=== PATIENT | male | born 1970 | race Caucasian/White ===

== ENCOUNTER 2019-09-25 12:30 | Outpatient (CLI) | payer BC ==
--- NOTE | 2019-09-25 12:55 | RAD ---
Exam: Chest 2 views: HISTORY: Cough COMPARISON: 06/05/2011 FINDINGS: Alveolar parenchymal change in the right lower lobe evidence for pneumonia. Heart size is normal. The left lung is clear. IMPRESSION: Left lower lobe pneumonia.
== END 2019-09-25 12:31 | disposition home or self-care (01) ==
LOC: BICRAD 12:30
PROVIDERS: ATTEND Family Medicine
DX: R05 Cough (principal); J18.9 Pneumonia, unspecified organism
CPT/HCPCS: 71046

== ENCOUNTER 2019-10-16 09:06 | Outpatient (CLI) | payer BC ==
--- NOTE | 2019-10-16 10:46 | CT ---
EXAM: CT Abdomen Pelvis W WO con PROVIDED CLINICAL HISTORY: Follow-up left renal cystic lesion. Prior studies in 2017. COMPARISON: 03/10/2017 FINDINGS: Small right pleural effusion is present. There is a parenchymal density seen in the right lower lobe with adjacent interstitial parenchymal opacity. Findings are favored to represent pneumonia, but follow-up evaluation is recommended to ensure resolution and exclude an underlying neoplastic process . The left lung base is clear aside from minimal atelectasis in the lingula. Again noted is the lobulated complex cystic lesion midportion left kidney with associated calcificati ons. Linear densities within this lesion are suggestive of septations with a few of the septations demonstrating thin calcifications. This lesion has similar appearance to the prior study in 2017 alth ough is slightly larger in size measuring 6.5 cm x 4.1 cm in greatest axial dimension with prior measurement of 6.2 cm x 3.9 cm. No abnormal enhancement is seen within this cystic lesion, and the de gree of growth since the prior study is less than 10%. Subcentimeter too small to characterize hypodense lesions are seen in each kidney. There is a slightl y larger hypodense lesion seen in the superior pole left kidney most suggestive of a parapelvic renal cyst. No renal or ureteral calculi are seen bilaterally, and there is no hydronephrosis present . No definite filling defect is seen in the visualized renal collecting systems or ureters. The urinary bladder demonstrates a normal CT appearance. The liver, spleen, pancreas, and bilateral adrenal glands demonstrate a normal CT appearance. Vascular calcifications are seen in the abdominal aorta and iliac arteries. Loops of small bowel are normal in caliber. A few scattered colonic diverticula are seen. Retrocecal appendix is seen without CT evidence of appendicitis. No free fluid, fluid collection, or lymphadenopathy is seen in the abdomen or pelvis. Mild degenerative changes are seen in the spine. IMPRESSION: 1. Parenchymal density right lower lobe with adjacent linear interstitial densities. Findings are fav ored to represent pneumonia especially in the correct clinical scenario. Associated right pleural effusion is present. Follow-up to resolution is recommended to exclude an underlying neoplastic proce ss. 2. 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
[2019-10-16] MEDS ORDERED: Iopamidol 370 76% 100 ML VIAL ONE (14:35)
== END 2019-10-16 09:07 | disposition home or self-care (01) ==
LOC: BICCT 09:06
PROVIDERS: ATTEND Family Medicine
DX: N28.1 Cyst of kidney, acquired (principal); J90 Pleural effusion, not elsewhere classified; N28.9 Disorder of kidney and ureter, unspecified; J98.4 Other disorders of lung
CPT/HCPCS: 74178; Q9967

== ENCOUNTER 2020-04-29 10:42 | Outpatient (CLI) | payer BC ==
--- NOTE | 2020-04-29 12:21 | RAD ---
RIGHT FOOT 3 VIEWS: Date: 04/29/2020 HISTORY: Right foot pain following an injury. FINDINGS: Some mild osteoarthrosis and degenerative changes. No acute fracture or dislocation. IMPRESSION: No significant acute process. POS: RRE
--- NOTE | 2020-04-29 12:22 | RAD ---
RIGHT GREAT TOE 3 VIEWS: Date: 04/29/2020 HISTORY: Pain following an injury. FINDINGS/IMPRESSION: No fracture, dislocation, or other significant acute osseous process. POS: RRE
== END 2020-04-29 10:43 | disposition home or self-care (01) ==
LOC: BICRAD 10:42
PROVIDERS: ATTEND Family Medicine
DX: M79.674 Pain in right toe(s) (principal); M79.671 Pain in right foot

== ENCOUNTER 2021-03-28 07:59 | Day surgery (SDC) | payer BC ==
[2021-03-26 16:56] VITALS: BMI 37.3
[2021-03-28] MEDS ORDERED: PROPOFOL 20 ML ONE (08:51)
[2021-03-28] MEDS ORDERED: Fentanyl 100 MCG/2 ML VIAL ONE (10:45)
[2021-03-28] MEDS ORDERED: Lidocaine 1% PF 5 ML VIAL ONE (10:56)
[2021-03-28] MEDS ORDERED: Metoclopramide HCl 10 MG/2 ML VIAL ONE (10:56)
[2021-03-28] MEDS ORDERED: PROPOFOL 200 MG/20 ML VIAL ONE (10:56)
[2021-03-28] MEDS ORDERED: Bupivacaine PF 0.5% 30 ML VIAL ONE (10:56)
[2021-03-28] MEDS ORDERED: Lidocaine 2% w/Epinephrine 1:200K 20 ML VIAL ONE (10:56)
[2021-03-28] MEDS ORDERED: Ondansetron PF 4 MG/2 ML Vial ONE (10:56)
== END 2021-03-28 14:20 | disposition home or self-care (01) ==
LOC: SDC 07:59
PROVIDERS: ATTEND Orthopaedic Surgery
PROC: 0SBD4ZZ Excision of Left Knee Joint, Percutaneous Endoscopic Approach (ICD-10-PCS; principal; 2021-03-28)
DX: S83.242A Other tear of medial meniscus, current injury, left knee, initial encounter (principal); M23.8X2 Other internal derangements of left knee; I10 Essential (primary) hypertension; Z87.891 Personal history of nicotine dependence; Z79.84 Long term (current) use of oral hypoglycemic drugs; Z79.899 Other long term (current) drug therapy
CPT/HCPCS: J0690; J2405; J2704; J2765; J3010; S0020

== ENCOUNTER 2021-04-11 22:14 | Emergency (ER) | payer BC | END 2021-04-11 23:27 | disposition home or self-care (01) | LOC: ERS 22:14 | DX: U07.1 COVID-19 (principal); E11.9 Type 2 diabetes mellitus without complications; I10 Essential (primary) hypertension; E78.00 Pure hypercholesterolemia, unspecified | CPT/HCPCS: 99283 ==

== ENCOUNTER 2021-04-13 23:36 | Inpatient (IN) | payer BC ==
[~2021-04-13 23:36] MED LIST: Iopamidol-370 76% 500 ML 1 ML ONE
[2021-04-14 00:46] LABS: ALT (SGPT) 76 U/L (8-55); AST (SGOT) 132 U/L (5-34); Albumin 3.7 g/dL (3.5-5.0); Alkaline Phosphatase 97 U/L (40-110); Anion Gap 15 mmol/L (10-20); BUN (Urea Nitrogen) 13 mg/dL (8.9-20.6); Bilirubin, Total 0.4 mg/dL (0.2-1.2); Calc. Creatinine Clearance 0 mL/min (70-130); Calcium 9.1 mg/dL (7.8-10.44); Carbon Dioxide 24 mmol/L (22-29); Chloride 99 mmol/L (98-107); Globulin 3.2 g/dL (2.4-3.5); Glucose 210 mg/dL (70-105); Protein, Total 6.9 g/dL (6.0-8.3); Sodium 135 mmol/L (136-145)
[2021-04-14 00:48] LABS: #Lymphocytes 0.7 thou/uL (1.20-3.40); #Monocytes 0.2 thou/uL (0.11-0.59); #Neutrophils 2.4 thou/uL (1.40-6.50); %Basophils 0.2 % (0.0-1.0); %Eosinophils 0.2 % (0.0-10.0); %Lymphocytes 20.3 % (21.0-51.0); %Monocytes 6.2 % (0.0-10.0); %Neutrophils 73.2 % (42.0-75.0); Hemoglobin 12.6 g/dL (14.0-18.0); Mean Corpuscular HGB CONC 36.3 g/dL (32.0-36.0); Mean Corpuscular Hemoglobin 32.3 pg (27.0-31.0); Mean Platelet Volume 11.5 fL (7.4-10.4); Platelet Count 70 thou/uL (130-400); Platelet Morphology Comment Appears Decreased; RBC Distribution Width 12.6 % (11.5-14.5); White Blood Cell (WBC) Count 3.3 thou/uL (4.8-10.8)
[2021-04-14 01:09] LABS: CKMB 4.7 ng/mL (0-6.6)
[2021-04-14] MEDS ORDERED: Aspirin 325 MG TAB ONE (01:14)
[2021-04-14] MEDS ORDERED: Potassium Chloride 20 MEQ TAB ONE (01:43)
[2021-04-14] MEDS ORDERED: Dexamethasone 10 MG/ML VIAL ONE (01:43)
[2021-04-14] MEDS ORDERED: Ondansetron PF 4 MG/2 ML Vial IVP PRN (03:45)
[2021-04-14] MEDS ORDERED: Dextrose 5% in Water 1,000 ML IV PRN (03:47)
[2021-04-14] MEDS ORDERED: Dextrose 50% Abboject 50 ML SYRINGE SLOW IVP PRN (03:47)
[2021-04-14] MEDS ORDERED: Dexamethasone 10 MG/ML VIAL SLOW IVP SCH (04:00)
[2021-04-14] MEDS ORDERED: Pharmacy to Dose REMDESIVIR IVPB PRN (04:26)
[2021-04-14 05:00] LABS: #Lymphocytes 0.5 thou/uL (1.20-3.40); #Monocytes 0.1 thou/uL (0.11-0.59); #Neutrophils 2.9 thou/uL (1.40-6.50); %Eosinophils 0.1 % (0.0-10.0); %Lymphocytes 15.4 % (21.0-51.0); %Monocytes 2.2 % (0.0-10.0); %Neutrophils 82.4 % (42.0-75.0); Hemoglobin 13.1 g/dL (14.0-18.0); Mean Corpuscular HGB CONC 36.3 g/dL (32.0-36.0); Mean Corpuscular Hemoglobin 32.5 pg (27.0-31.0); Mean Corpuscular Volume 89.3 fL (78.0-98.0); Mean Platelet Volume 11.2 fL (7.4-10.4); Platelet Count 70 thou/uL (130-400); RBC Distribution Width 12.7 % (11.5-14.5); Red Blood Cell (RBC) Count 4.03 mill/uL (4.70-6.10); White Blood Cell (WBC) Count 3.5 thou/uL (4.8-10.8)
[2021-04-14 05:03] LABS: Anion Gap 17 mmol/L (10-20); BUN (Urea Nitrogen) 11 mg/dL (8.9-20.6); Calc. Creatinine Clearance 0 mL/min (70-130); Calcium 8.9 mg/dL (7.8-10.44); Carbon Dioxide 22 mmol/L (22-29); Chloride 100 mmol/L (98-107); Glucose 257 mg/dL (70-105); Potassium 3.7 mmol/L (3.5-5.1); Sodium 135 mmol/L (136-145)
[2021-04-14 05:05] LABS: ALT (SGPT) 92 U/L (8-55); AST (SGOT) 146 U/L (5-34); Albumin 3.8 g/dL (3.5-5.0); Alkaline Phosphatase 103 U/L (40-110); Bilirubin, Direct 0.3 mg/dL (0.1-0.3); Bilirubin, Total 0.4 mg/dL (0.2-1.2); Magnesium 1.7 mg/dL (1.6-2.6); Protein, Total 6.7 g/dL (6.0-8.3)
[2021-04-14] MEDS: HumaLOG 300 UNITS/3 ML VIAL SC PRN ×3 (06:19→20:31)
[2021-04-14] MEDS: Metoprolol Tartrate 25 MG TAB PO SCH ×2 (08:31→17:32)
[2021-04-14] MEDS: Ascorbic Acid 500 mg Chewable Tablet PO SCH (08:32)
[2021-04-14] MEDS: Famotidine 20 MG TAB PO SCH ×2 (08:32→20:14)
[2021-04-14] MEDS: Cholecalciferol 1,000 UNITS (25 MCG) TAB PO SCH (08:32)
[2021-04-14] MEDS: Topiramate 25 MG TAB PO SCH (08:33)
[2021-04-14] MEDS: Furosemide 40 MG TAB PO SCH (08:33)
[2021-04-14] MEDS: Valsartan 80 MG TAB PO SCH (08:33)
[2021-04-14] MEDS: Acetaminophen 325 MG TAB PO PRN ×2 (08:34→20:14)
[2021-04-14] MEDS ORDERED: REMDESIVIR 200 MG in Sodium Chloride 0.9% 250 ML 210 ML IV SCH (09:00)
[2021-04-14] MEDS ORDERED: Furosemide 40 MG TAB PO SCH (09:00)
[2021-04-14 09:44] LABS: Troponin I 0.047 ng/mL (< 0.028)
[2021-04-14] MEDS: hydrALAZINE 20 MG/ML VIAL SLOW IVP PRN (18:25)
[2021-04-15] MEDS ORDERED: guaiFENesin/DM ER PO SCH (03:00)
[2021-04-15] MEDS: hydrALAZINE 20 MG/ML VIAL SLOW IVP PRN (04:41)
[2021-04-15] MEDS ORDERED: HYDROcodone/Acetaminophen 5/325 mg Tablet PO SCH (05:01)
[2021-04-15] MEDS: HumaLOG 300 UNITS/3 ML VIAL SC PRN ×4 (05:55→20:09)
[2021-04-15 05:57] LABS: #Lymphocytes 0.9 thou/uL (1.20-3.40); #Monocytes 0.4 thou/uL (0.11-0.59); #Neutrophils 4.7 thou/uL (1.40-6.50); %Eosinophils 0.1 % (0.0-10.0); %Lymphocytes 14.2 % (21.0-51.0); %Monocytes 6.8 % (0.0-10.0); %Neutrophils 78.9 % (42.0-75.0); Hemoglobin 12.9 g/dL (14.0-18.0); Mean Corpuscular HGB CONC 32.8 g/dL (32.0-36.0); Mean Corpuscular Hemoglobin 29.1 pg (27.0-31.0); Mean Corpuscular Volume 88.8 fL (78.0-98.0); Mean Platelet Volume 11.1 fL (7.4-10.4); Platelet Count 92 thou/uL (130-400); Red Blood Cell (RBC) Count 4.43 mill/uL (4.70-6.10)
[2021-04-15 06:10] LABS: Anion Gap 18 mmol/L (10-20); BUN (Urea Nitrogen) 13 mg/dL (8.9-20.6); Calc. Creatinine Clearance 126 mL/min (70-130); Calcium 8.2 mg/dL (7.8-10.44); Carbon Dioxide 22 mmol/L (22-29); Chloride 100 mmol/L (98-107); Glucose 252 mg/dL (70-105); Potassium 3.7 mmol/L (3.5-5.1); Sodium 136 mmol/L (136-145)
[2021-04-15 06:14] LABS: Albumin 3.6 g/dL (3.5-5.0); Alkaline Phosphatase 99 U/L (40-110); Bilirubin, Direct 0.3 mg/dL (0.1-0.3); Bilirubin, Total 0.5 mg/dL (0.2-1.2); Protein, Total 6.9 g/dL (6.0-8.3)
[2021-04-15 06:15] LABS: ALT (SGPT) 112 U/L (8-55); AST (SGOT) 156 U/L (5-34)
[2021-04-15 06:16] LABS: CRP (Inflammatory) 6.35 mg/dL (= or < 0.5); Magnesium 1.6 mg/dL (1.6-2.6)
[2021-04-15] MEDS: NIFEdipine XL 60 MG TAB PO SCH (09:40)
[2021-04-15] MEDS: Enoxaparin Sodium 100 MG/ML SYRINGE SC SCH ×2 (09:41→20:03)
[2021-04-15] MEDS: Valsartan 80 MG TAB PO SCH (09:41)
[2021-04-15] MEDS: Metoprolol Tartrate 25 MG TAB PO SCH ×2 (09:42→17:01)
[2021-04-15] MEDS: Furosemide 40 MG TAB PO SCH (09:42)
[2021-04-15] MEDS: Topiramate 25 MG TAB PO SCH (09:42)
[2021-04-15] MEDS: Ascorbic Acid 500 mg Chewable Tablet PO SCH (09:42)
[2021-04-15] MEDS: Cholecalciferol 1,000 UNITS (25 MCG) TAB PO SCH (09:42)
[2021-04-15] MEDS: Famotidine 20 MG TAB PO SCH ×2 (09:43→20:01)
[2021-04-15] MEDS: Acetaminophen 325 MG TAB PO PRN (09:43)
[2021-04-15] MEDS: Dexamethasone 10 MG/ML VIAL SLOW IVP SCH (09:44)
[2021-04-15] MEDS: guaiFENesin/DM ER PO SCH ×2 (09:44→20:03)
[2021-04-15] MEDS: REMDESIVIR 100 MG in Sodium Chloride 0.9% 250 ML 230 ML IV SCH (09:45)
[2021-04-16] MEDS: HumaLOG 300 UNITS/3 ML VIAL SC PRN ×4 (06:02→20:17)
[2021-04-16 06:38] LABS: #Lymphocytes 0.8 thou/uL (1.20-3.40); #Monocytes 0.5 thou/uL (0.11-0.59); #Neutrophils 5.1 thou/uL (1.40-6.50); %Basophils 0.6 % (0.0-1.0); %Eosinophils 0.1 % (0.0-10.0); %Lymphocytes 12.7 % (21.0-51.0); %Monocytes 8.3 % (0.0-10.0); %Neutrophils 78.3 % (42.0-75.0); Hemoglobin 13.4 g/dL (14.0-18.0); Mean Corpuscular HGB CONC 32.5 g/dL (32.0-36.0); Mean Corpuscular Hemoglobin 29.3 pg (27.0-31.0); Mean Corpuscular Volume 90.2 fL (78.0-98.0); Mean Platelet Volume 10.6 fL (7.4-10.4); Platelet Count 113 thou/uL (130-400); RBC Distribution Width 13.1 % (11.5-14.5); Red Blood Cell (RBC) Count 4.58 mill/uL (4.70-6.10); White Blood Cell (WBC) Count 6.5 thou/uL (4.8-10.8)
[2021-04-16 07:01] LABS: Anion Gap 15 mmol/L (10-20); BUN (Urea Nitrogen) 18 mg/dL (8.9-20.6); Calc. Creatinine Clearance 142 mL/min (70-130); Calcium 8.4 mg/dL (7.8-10.44); Carbon Dioxide 23 mmol/L (22-29); Chloride 100 mmol/L (98-107); Glucose 299 mg/dL (70-105); Potassium 3.9 mmol/L (3.5-5.1); Sodium 134 mmol/L (136-145)
[2021-04-16 07:02] LABS: CRP (Inflammatory) 7.44 mg/dL (= or < 0.5)
[2021-04-16 07:03] LABS: ALT (SGPT) 122 U/L (8-55); AST (SGOT) 143 U/L (5-34); Albumin 3.5 g/dL (3.5-5.0); Alkaline Phosphatase 99 U/L (40-110); Bilirubin, Direct 0.3 mg/dL (0.1-0.3); Bilirubin, Total 0.5 mg/dL (0.2-1.2); Protein, Total 6.8 g/dL (6.0-8.3)
[2021-04-16] MEDS: REMDESIVIR 100 MG in Sodium Chloride 0.9% 250 ML 230 ML IV SCH (08:14)
[2021-04-16] MEDS: Dexamethasone 10 MG/ML VIAL SLOW IVP SCH (08:16)
[2021-04-16] MEDS: Enoxaparin Sodium 100 MG/ML SYRINGE SC SCH ×2 (08:16→20:13)
[2021-04-16] MEDS: Valsartan 80 MG TAB PO SCH (08:17)
[2021-04-16] MEDS: NIFEdipine XL 60 MG TAB PO SCH (08:17)
[2021-04-16] MEDS: Ascorbic Acid 500 mg Chewable Tablet PO SCH (08:17)
[2021-04-16] MEDS: Topiramate 25 MG TAB PO SCH (08:18)
[2021-04-16] MEDS: Famotidine 20 MG TAB PO SCH ×2 (08:18→20:13)
[2021-04-16] MEDS: Furosemide 40 MG TAB PO SCH (08:18)
[2021-04-16] MEDS: Cholecalciferol 1,000 UNITS (25 MCG) TAB PO SCH (08:18)
[2021-04-16] MEDS: Metoprolol Tartrate 25 MG TAB PO SCH ×2 (08:18→17:18)
[2021-04-16] MEDS: guaiFENesin/DM ER PO SCH ×2 (08:19→20:14)
[2021-04-17 05:41] LABS: #Lymphocytes 1.2 thou/uL (1.20-3.40); #Neutrophils 7.7 thou/uL (1.40-6.50); %Basophils 0.2 % (0.0-1.0); %Eosinophils 0.3 % (0.0-10.0); %Lymphocytes 12.4 % (21.0-51.0); %Monocytes 10.1 % (0.0-10.0); Hemoglobin 13.3 g/dL (14.0-18.0); Mean Corpuscular HGB CONC 33.7 g/dL (32.0-36.0); Mean Corpuscular Hemoglobin 30.3 pg (27.0-31.0); Mean Platelet Volume 10.9 fL (7.4-10.4); Platelet Count 138 thou/uL (130-400); RBC Distribution Width 13.1 % (11.5-14.5)
[2021-04-17 06:07] LABS: Anion Gap 18 mmol/L (10-20); BUN (Urea Nitrogen) 19 mg/dL (8.9-20.6); Calc. Creatinine Clearance 146 mL/min (70-130); Calcium 8.6 mg/dL (7.8-10.44); Carbon Dioxide 22 mmol/L (22-29); Chloride 102 mmol/L (98-107); Glucose 248 mg/dL (70-105); Potassium 3.8 mmol/L (3.5-5.1); Sodium 138 mmol/L (136-145)
[2021-04-17 06:15] LABS: ALT (SGPT) 100 U/L (8-55); AST (SGOT) 82 U/L (5-34); Albumin 3.6 g/dL (3.5-5.0); Alkaline Phosphatase 110 U/L (40-110); Bilirubin, Direct 0.5 mg/dL (0.1-0.3); Bilirubin, Total 0.8 mg/dL (0.2-1.2); Protein, Total 6.7 g/dL (6.0-8.3)
[2021-04-17 06:16] LABS: CRP (Inflammatory) 4.76 mg/dL (= or < 0.5); Magnesium 2.1 mg/dL (1.6-2.6)
[2021-04-17] MEDS: HumaLOG 300 UNITS/3 ML VIAL SC PRN ×4 (06:33→20:24)
[2021-04-17] MEDS: Famotidine 20 MG TAB PO SCH ×2 (09:30→20:23)
[2021-04-17] MEDS: Ascorbic Acid 500 mg Chewable Tablet PO SCH (09:30)
[2021-04-17] MEDS: Topiramate 25 MG TAB PO SCH (09:31)
[2021-04-17] MEDS: Furosemide 40 MG TAB PO SCH (09:31)
[2021-04-17] MEDS: Cholecalciferol 1,000 UNITS (25 MCG) TAB PO SCH (09:31)
[2021-04-17] MEDS: Valsartan 80 MG TAB PO SCH (09:31)
[2021-04-17] MEDS: Metoprolol Tartrate 25 MG TAB PO SCH ×2 (09:31→17:23)
[2021-04-17] MEDS: NIFEdipine XL 60 MG TAB PO SCH (09:32)
[2021-04-17] MEDS: Dexamethasone 10 MG/ML VIAL SLOW IVP SCH (09:33)
[2021-04-17] MEDS: Enoxaparin Sodium 100 MG/ML SYRINGE SC SCH ×2 (09:33→20:19)
[2021-04-17] MEDS: REMDESIVIR 100 MG in Sodium Chloride 0.9% 250 ML 230 ML IV SCH (09:58)
[2021-04-17] MEDS: guaiFENesin/DM ER PO SCH ×2 (09:58→20:23)
[2021-04-17] MEDS ORDERED: BARICITINIB 2 MG TAB PO SCH (11:15)
[2021-04-18] MEDS: HumaLOG 300 UNITS/3 ML VIAL SC PRN ×4 (06:09→21:21)
[2021-04-18 07:56] LABS: Actual Bicarbonate (HCO3a) 21.9 mEq/L (22-28); Base Excess (BEa) 0.9 mEq/L (-2.0 to +3.0); Calcium, Ionized (arterial) 1.14 mmol/L (1.12-1.30); Carboxyhemoglobin (COHb) 0.1 gm% (0.0-3.0); Hemoglobin (Hb) 13.8 g/dL (14.0-18.0); pH, Arterial 7.55 (7.35-7.45)
[2021-04-18 07:57] LABS: CO2 Tension 25.8 mmHg (35.0-45.0); O2 Tension (PaO2), arterial 49.4 mmHg (80.0-100.0); Puncture Site LRA
[2021-04-18] MEDS: guaiFENesin/DM ER PO SCH ×2 (08:55→21:17)
[2021-04-18] MEDS: Enoxaparin Sodium 100 MG/ML SYRINGE SC SCH ×2 (08:57→21:17)
[2021-04-18] MEDS: NIFEdipine XL 60 MG TAB PO SCH (08:57)
[2021-04-18] MEDS: BARICITINIB 2 MG TAB PO SCH (08:58)
[2021-04-18] MEDS: Ascorbic Acid 500 mg Chewable Tablet PO SCH (08:59)
[2021-04-18] MEDS: Metoprolol Tartrate 25 MG TAB PO SCH ×2 (08:59→18:40)
[2021-04-18] MEDS: Cholecalciferol 1,000 UNITS (25 MCG) TAB PO SCH (09:00)
[2021-04-18] MEDS: Furosemide 40 MG TAB PO SCH (09:00)
[2021-04-18] MEDS: Dexamethasone 10 MG/ML VIAL SLOW IVP SCH (09:00)
[2021-04-18] MEDS: Topiramate 25 MG TAB PO SCH (09:01)
[2021-04-18] MEDS: Famotidine 20 MG TAB PO SCH ×2 (09:01→21:17)
[2021-04-18] MEDS: Valsartan 80 MG TAB PO SCH (09:01)
[2021-04-18] MEDS: Acetaminophen 325 MG TAB PO PRN (09:04)
[2021-04-18] MEDS: REMDESIVIR 100 MG in Sodium Chloride 0.9% 250 ML 230 ML IV SCH (11:06)
[2021-04-19] MEDS: Acetaminophen 325 MG TAB PO PRN ×2 (02:44→11:17)
[2021-04-19] MEDS: HumaLOG 300 UNITS/3 ML VIAL SC PRN ×2 (06:19→12:15)
[2021-04-19] MEDS: Metoprolol Tartrate 25 MG TAB PO SCH ×2 (09:52→17:54)
[2021-04-19] MEDS: BARICITINIB 2 MG TAB PO SCH (09:53)
[2021-04-19] MEDS: NIFEdipine XL 60 MG TAB PO SCH (09:53)
[2021-04-19] MEDS: guaiFENesin/DM ER PO SCH ×2 (09:53→22:55)
[2021-04-19] MEDS: Enoxaparin Sodium 100 MG/ML SYRINGE SC SCH ×2 (09:53→22:55)
[2021-04-19] MEDS: Famotidine 20 MG TAB PO SCH ×2 (09:53→22:55)
[2021-04-19] MEDS: Valsartan 80 MG TAB PO SCH (09:53)
[2021-04-19] MEDS: Cholecalciferol 1,000 UNITS (25 MCG) TAB PO SCH (09:54)
[2021-04-19] MEDS: Furosemide 40 MG TAB PO SCH (09:54)
[2021-04-19] MEDS: Topiramate 25 MG TAB PO SCH (09:54)
[2021-04-19] MEDS: Ascorbic Acid 500 mg Chewable Tablet PO SCH (09:54)
[2021-04-19] MEDS: Dexamethasone 10 MG/ML VIAL SLOW IVP SCH (09:55)
[2021-04-19] MEDS: Guaifenesin DM 100-10/5 ML UDCUP PO PRN (11:16)
[2021-04-19] MEDS: hydrALAZINE 20 MG/ML VIAL SLOW IVP PRN (11:16)
[2021-04-19 11:53] LABS: Hemoglobin 13.7 g/dL (14.0-18.0); Mean Corpuscular HGB CONC 30.4 g/dL (32.0-36.0); Mean Corpuscular Hemoglobin 27.6 pg (27.0-31.0); Mean Corpuscular Volume 90.7 fL (78.0-98.0); Mean Platelet Volume 10.8 fL (7.4-10.4); Platelet Count 185 thou/uL (130-400); RBC Distribution Width 13.3 % (11.5-14.5); Red Blood Cell (RBC) Count 4.99 mill/uL (4.70-6.10); White Blood Cell (WBC) Count 15.2 thou/uL (4.8-10.8)
[2021-04-19 11:54] LABS: Band 8 % (5-11); Lymphocytes 9 % (21-51); MDiff Complete? YES; Metamyelocyte 1 % (0-0); Monocytes 1 % (0-10); Neutrophil 81 % (42-75)
[2021-04-19 12:03] LABS: ALT (SGPT) 87 U/L (8-55); AST (SGOT) 59 U/L (5-34); Albumin 3.2 g/dL (3.5-5.0); Alkaline Phosphatase 124 U/L (40-110); Anion Gap 18 mmol/L (10-20); BUN (Urea Nitrogen) 15 mg/dL (8.9-20.6); Bilirubin, Total 1.2 mg/dL (0.2-1.2); Calc. Creatinine Clearance 143 mL/min (70-130); Calcium 8.5 mg/dL (7.8-10.44); Carbon Dioxide 18 mmol/L (22-29); Chloride 103 mmol/L (98-107); Globulin 3.2 g/dL (2.4-3.5); Glucose 223 mg/dL (70-105); Potassium 3.9 mmol/L (3.5-5.1); Protein, Total 6.4 g/dL (6.0-8.3); Sodium 135 mmol/L (136-145)
[2021-04-19] MEDS ORDERED: Albuterol 200 PUFF (6.7GM INHALER) INH PRN (15:05)
[2021-04-19] MEDS: Cefepime 1 GM in Sodium Chloride 0.9% 100 ML IVPB SCH (17:54)
[2021-04-19] MEDS: Doxycycline 100 MG CAP PO SCH (22:55)
[2021-04-20] MEDS: HumaLOG 300 UNITS/3 ML VIAL SC PRN ×2 (00:06→17:07)
[2021-04-20 04:40] LABS: #Lymphocytes 1.3 thou/uL (1.20-3.40); #Monocytes 0.8 thou/uL (0.11-0.59); #Neutrophils 11.5 thou/uL (1.40-6.50); %Basophils 0.1 % (0.0-1.0); %Eosinophils 0.1 % (0.0-10.0); %Lymphocytes 9.4 % (21.0-51.0); %Monocytes 5.6 % (0.0-10.0); %Neutrophils 84.8 % (42.0-75.0); Hemoglobin 13.5 g/dL (14.0-18.0); Mean Corpuscular HGB CONC 30.8 g/dL (32.0-36.0); Mean Corpuscular Hemoglobin 27.9 pg (27.0-31.0); Mean Corpuscular Volume 90.6 fL (78.0-98.0); Mean Platelet Volume 11.4 fL (7.4-10.4); Platelet Count 185 thou/uL (130-400); RBC Distribution Width 13.3 % (11.5-14.5); Red Blood Cell (RBC) Count 4.85 mill/uL (4.70-6.10); White Blood Cell (WBC) Count 13.5 thou/uL (4.8-10.8)
[2021-04-20 05:04] LABS: ALT (SGPT) 70 U/L (8-55); AST (SGOT) 45 U/L (5-34); Albumin 3.1 g/dL (3.5-5.0); Alkaline Phosphatase 124 U/L (40-110); Anion Gap 16 mmol/L (10-20); BUN (Urea Nitrogen) 18 mg/dL (8.9-20.6); Bilirubin, Total 0.8 mg/dL (0.2-1.2); CRP (Inflammatory) 24.98 mg/dL (= or < 0.5); Calc. Creatinine Clearance 151 mL/min (70-130); Calcium 8.6 mg/dL (7.8-10.44); Carbon Dioxide 19 mmol/L (22-29); Chloride 102 mmol/L (98-107); Globulin 3.4 g/dL (2.4-3.5); Glucose 231 mg/dL (70-105); Magnesium 2.3 mg/dL (1.6-2.6); Protein, Total 6.5 g/dL (6.0-8.3); Sodium 133 mmol/L (136-145)
[2021-04-20] MEDS: Guaifenesin DM 100-10/5 ML UDCUP PO PRN (05:16)
[2021-04-20] MEDS: Cefepime 1 GM in Sodium Chloride 0.9% 100 ML IVPB SCH ×2 (05:17→17:07)
[2021-04-20] MEDS: Albuterol 200 PUFF (6.7GM INHALER) INH SCH ×6 (09:19→21:13)
[2021-04-20] MEDS: Famotidine 20 MG TAB PO SCH (09:25)
[2021-04-20] MEDS: Ascorbic Acid 500 mg Chewable Tablet PO SCH (09:25)
[2021-04-20] MEDS: Metoprolol Tartrate 25 MG TAB PO SCH ×2 (09:25→17:06)
[2021-04-20] MEDS: Enoxaparin Sodium 100 MG/ML SYRINGE SC SCH ×2 (09:25→19:55)
[2021-04-20] MEDS: Cholecalciferol 1,000 UNITS (25 MCG) TAB PO SCH (09:25)
[2021-04-20] MEDS: NIFEdipine XL 60 MG TAB PO SCH (09:25)
[2021-04-20] MEDS: Topiramate 25 MG TAB PO SCH (09:25)
[2021-04-20] MEDS: guaiFENesin/DM ER PO SCH ×2 (09:26→19:55)
[2021-04-20] MEDS: BARICITINIB 2 MG TAB PO SCH (09:26)
[2021-04-20] MEDS: Furosemide 40 MG TAB PO SCH (09:26)
[2021-04-20] MEDS: Valsartan 80 MG TAB PO SCH (09:26)
[2021-04-20] MEDS: Doxycycline 100 MG CAP PO SCH ×2 (09:26→19:55)
[2021-04-20] MEDS: Dexamethasone 10 MG/ML VIAL SLOW IVP SCH (10:25)
[2021-04-20] MEDS ORDERED: Lantus 1000 UNITS/10 ML VIAL SC SCH (13:00)
[2021-04-20] MEDS: METHYLPREDNISOLONE SOD SUCC IVPB SCH (19:55)
[2021-04-20] MEDS: SODIUM CHLORIDE 0.9% IVPB SCH (19:55)
[2021-04-20] MEDS: Pantoprazole 40 MG VIAL IVP SCH (21:12)
[2021-04-20] MEDS: Lantus 1000 UNITS/10 ML VIAL SC SCH (21:13)
[2021-04-21] MEDS: Albuterol 200 PUFF (6.7GM INHALER) INH SCH ×6 (03:58→20:03)
[2021-04-21] MEDS: Cefepime 1 GM in Sodium Chloride 0.9% 100 ML IVPB SCH ×2 (03:59→17:23)
[2021-04-21 04:52] LABS: ALT (SGPT) 62 U/L (8-55); AST (SGOT) 51 U/L (5-34); Alkaline Phosphatase 131 U/L (40-110); Anion Gap 19 mmol/L (10-20); BUN (Urea Nitrogen) 17 mg/dL (8.9-20.6); Bilirubin, Total 0.7 mg/dL (0.2-1.2); Calc. Creatinine Clearance 157 mL/min (70-130); Calcium 8.7 mg/dL (7.8-10.44); Carbon Dioxide 16 mmol/L (22-29); Chloride 105 mmol/L (98-107); Globulin 3.7 g/dL (2.4-3.5); Glucose 199 mg/dL (70-105); Potassium 4.6 mmol/L (3.5-5.1); Protein, Total 6.7 g/dL (6.0-8.3); Sodium 135 mmol/L (136-145)
[2021-04-21 05:24] LABS: #Lymphocytes 1.1 thou/uL (1.20-3.40); #Monocytes 0.5 thou/uL (0.11-0.59); #Neutrophils 12.5 thou/uL (1.40-6.50); %Eosinophils 0.2 % (0.0-10.0); %Lymphocytes 7.5 % (21.0-51.0); %Monocytes 3.7 % (0.0-10.0); %Neutrophils 88.6 % (42.0-75.0); Hemoglobin 13.9 g/dL (14.0-18.0); Large Platelets SLIGHT; MDiff Complete? YES; Mean Corpuscular HGB CONC 31.4 g/dL (32.0-36.0); Mean Corpuscular Hemoglobin 28.8 pg (27.0-31.0); Mean Corpuscular Volume 91.8 fL (78.0-98.0); Mean Platelet Volume 12.1 fL (7.4-10.4); Platelet Count 160 thou/uL (130-400); Platelet Morphology Comment Appears Adequate; RBC Distribution Width 13.3 % (11.5-14.5); Red Blood Cell (RBC) Count 4.82 mill/uL (4.70-6.10); White Blood Cell (WBC) Count 14.1 thou/uL (4.8-10.8)
[2021-04-21] MEDS: Doxycycline 100 MG CAP PO SCH ×2 (08:54→20:02)
[2021-04-21] MEDS: Topiramate 25 MG TAB PO SCH (08:54)
[2021-04-21] MEDS: Ascorbic Acid 500 mg Chewable Tablet PO SCH (08:54)
[2021-04-21] MEDS: Cholecalciferol 1,000 UNITS (25 MCG) TAB PO SCH (08:55)
[2021-04-21] MEDS: guaiFENesin/DM ER PO SCH ×2 (08:55→20:03)
[2021-04-21] MEDS: Valsartan 80 MG TAB PO SCH (08:55)
[2021-04-21] MEDS: BARICITINIB 2 MG TAB PO SCH (08:55)
[2021-04-21] MEDS: Enoxaparin Sodium 100 MG/ML SYRINGE SC SCH ×2 (08:55→20:02)
[2021-04-21] MEDS: NIFEdipine XL 60 MG TAB PO SCH (08:55)
[2021-04-21] MEDS: Furosemide 40 MG TAB PO SCH (08:55)
[2021-04-21] MEDS: Metoprolol Tartrate 25 MG TAB PO SCH ×2 (08:55→17:23)
[2021-04-21] MEDS: Lantus 1000 UNITS/10 ML VIAL SC SCH ×2 (08:56→20:03)
[2021-04-21] MEDS ORDERED: Lantus 1000 UNITS/10 ML VIAL SC SCH (09:00)
[2021-04-21] MEDS: Pantoprazole 40 MG VIAL IVP SCH ×2 (09:01→20:02)
[2021-04-21] MEDS: HumaLOG 300 UNITS/3 ML VIAL SC PRN (11:25)
[2021-04-21 16:55] LABS: Anion Gap 15 mmol/L (10-20); BUN (Urea Nitrogen) 20 mg/dL (8.9-20.6); Calc. Creatinine Clearance 154 mL/min (70-130); Calcium 8.6 mg/dL (7.8-10.44); Carbon Dioxide 21 mmol/L (22-29); Chloride 104 mmol/L (98-107); Glucose 246 mg/dL (70-105); Potassium 4.2 mmol/L (3.5-5.1); Sodium 136 mmol/L (136-145)
[2021-04-21] MEDS: METHYLPREDNISOLONE SOD SUCC IVPB SCH (20:03)
[2021-04-21] MEDS: SODIUM CHLORIDE 0.9% IVPB SCH (20:03)
[2021-04-22] MEDS: Albuterol 200 PUFF (6.7GM INHALER) INH SCH ×7 (02:45→22:53)
[2021-04-22] MEDS: guaiFENesin/Codeine 200 mg/20 mg 10 ml Cup PO PRN (03:24)
[2021-04-22] MEDS: Cefepime 1 GM in Sodium Chloride 0.9% 100 ML IVPB SCH ×2 (06:26→17:07)
[2021-04-22] MEDS: HumaLOG 300 UNITS/3 ML VIAL SC PRN ×2 (06:28→17:07)
[2021-04-22 07:41] LABS: #Basophils 0.1 thou/uL (0.0-0.2); #Lymphocytes 1.1 thou/uL (1.20-3.40); #Monocytes 0.9 thou/uL (0.11-0.59); #Neutrophils 14.1 thou/uL (1.40-6.50); %Basophils 0.4 % (0.0-1.0); %Eosinophils 0.2 % (0.0-10.0); %Lymphocytes 6.5 % (21.0-51.0); %Monocytes 5.4 % (0.0-10.0); %Neutrophils 87.5 % (42.0-75.0); Hemoglobin 13.6 g/dL (14.0-18.0); Mean Corpuscular HGB CONC 31.5 g/dL (32.0-36.0); Mean Corpuscular Hemoglobin 28.6 pg (27.0-31.0); Mean Platelet Volume 11.3 fL (7.4-10.4); Platelet Count 264 thou/uL (130-400); RBC Distribution Width 13.1 % (11.5-14.5); Red Blood Cell (RBC) Count 4.76 mill/uL (4.70-6.10); White Blood Cell (WBC) Count 16.2 thou/uL (4.8-10.8)
[2021-04-22 07:58] LABS: Anion Gap 15 mmol/L (10-20); BUN (Urea Nitrogen) 19 mg/dL (8.9-20.6); CRP (Inflammatory) 5.55 mg/dL (= or < 0.5); Calc. Creatinine Clearance 142 mL/min (70-130); Carbon Dioxide 23 mmol/L (22-29); Chloride 104 mmol/L (98-107); Glucose 315 mg/dL (70-105); Potassium 4.5 mmol/L (3.5-5.1); Sodium 137 mmol/L (136-145)
[2021-04-22] MEDS: Valsartan 80 MG TAB PO SCH (09:26)
[2021-04-22] MEDS: Metoprolol Tartrate 25 MG TAB PO SCH ×2 (09:26→17:07)
[2021-04-22] MEDS: Ascorbic Acid 500 mg Chewable Tablet PO SCH (09:26)
[2021-04-22] MEDS: BARICITINIB 2 MG TAB PO SCH (09:26)
[2021-04-22] MEDS: Doxycycline 100 MG CAP PO SCH ×2 (09:26→22:38)
[2021-04-22] MEDS: Furosemide 40 MG TAB PO SCH (09:27)
[2021-04-22] MEDS: Enoxaparin Sodium 100 MG/ML SYRINGE SC SCH ×2 (09:27→22:38)
[2021-04-22] MEDS: NIFEdipine XL 60 MG TAB PO SCH (09:27)
[2021-04-22] MEDS: guaiFENesin/DM ER PO SCH ×2 (09:27→22:38)
[2021-04-22] MEDS: Lantus 1000 UNITS/10 ML VIAL SC SCH ×2 (09:31→22:53)
[2021-04-22] MEDS: Cholecalciferol 1,000 UNITS (25 MCG) TAB PO SCH (09:32)
[2021-04-22] MEDS: Pantoprazole 40 MG VIAL IVP SCH ×2 (09:35→22:38)
[2021-04-22] MEDS: Topiramate 25 MG TAB PO SCH (09:36)
[2021-04-22] MEDS ORDERED: cloNIDine 0.1 MG TAB PO SCH (14:00)
[2021-04-22] MEDS ORDERED: Lantus 1000 UNITS/10 ML VIAL SC SCH (21:00)
[2021-04-22] MEDS: SODIUM CHLORIDE 0.9% IVPB SCH (22:36)
[2021-04-22] MEDS: METHYLPREDNISOLONE SOD SUCC IVPB SCH (22:36)
[2021-04-22] MEDS: cloNIDine 0.2 MG TAB PO SCH (22:38)
[2021-04-23] MEDS: Cefepime 1 GM in Sodium Chloride 0.9% 100 ML IVPB SCH ×2 (05:39→17:20)
[2021-04-23] MEDS: guaiFENesin/Codeine 200 mg/20 mg 10 ml Cup PO PRN (05:39)
[2021-04-23] MEDS: Albuterol 200 PUFF (6.7GM INHALER) INH SCH ×6 (06:42→22:30)
[2021-04-23 08:07] LABS: #Basophils 0.1 thou/uL (0.0-0.2); #Eosinphils 0.1 thou/uL (0.0-0.7); #Lymphocytes 0.9 thou/uL (1.20-3.40); #Neutrophils 15.2 thou/uL (1.40-6.50); %Basophils 0.4 % (0.0-1.0); %Eosinophils 0.6 % (0.0-10.0); %Lymphocytes 5.3 % (21.0-51.0); %Monocytes 5.8 % (0.0-10.0); %Neutrophils 88.1 % (42.0-75.0); Mean Corpuscular HGB CONC 32.6 g/dL (32.0-36.0); Mean Corpuscular Volume 88.8 fL (78.0-98.0); Mean Platelet Volume 11.2 fL (7.4-10.4); Platelet Count 257 thou/uL (130-400); RBC Distribution Width 12.7 % (11.5-14.5); Red Blood Cell (RBC) Count 4.83 mill/uL (4.70-6.10); White Blood Cell (WBC) Count 17.3 thou/uL (4.8-10.8)
[2021-04-23 08:31] LABS: Anion Gap 14 mmol/L (10-20); BUN (Urea Nitrogen) 16 mg/dL (8.9-20.6); CRP (Inflammatory) 3.17 mg/dL (= or < 0.5); Calc. Creatinine Clearance 177 mL/min (70-130); Calcium 8.6 mg/dL (7.8-10.44); Carbon Dioxide 24 mmol/L (22-29); Chloride 105 mmol/L (98-107); Glucose 163 mg/dL (70-105); Potassium 4.5 mmol/L (3.5-5.1); Sodium 138 mmol/L (136-145)
[2021-04-23] MEDS: guaiFENesin/DM ER PO SCH ×2 (10:26→20:05)
[2021-04-23] MEDS: Metoprolol Tartrate 25 MG TAB PO SCH ×2 (10:26→17:18)
[2021-04-23] MEDS: Valsartan 80 MG TAB PO SCH (10:26)
[2021-04-23] MEDS: Furosemide 40 MG TAB PO SCH (10:26)
[2021-04-23] MEDS: Cholecalciferol 1,000 UNITS (25 MCG) TAB PO SCH (10:26)
[2021-04-23] MEDS: NIFEdipine XL 60 MG TAB PO SCH (10:27)
[2021-04-23] MEDS: Topiramate 25 MG TAB PO SCH (10:27)
[2021-04-23] MEDS: cloNIDine 0.2 MG TAB PO SCH ×2 (10:27→20:05)
[2021-04-23] MEDS: Doxycycline 100 MG CAP PO SCH ×2 (10:27→20:05)
[2021-04-23] MEDS: Ascorbic Acid 500 mg Chewable Tablet PO SCH (10:27)
[2021-04-23] MEDS: Lantus 1000 UNITS/10 ML VIAL SC SCH ×2 (10:28→20:06)
[2021-04-23] MEDS: BARICITINIB 2 MG TAB PO SCH (10:28)
[2021-04-23] MEDS: Enoxaparin Sodium 100 MG/ML SYRINGE SC SCH ×2 (10:30→20:05)
[2021-04-23] MEDS: Pantoprazole 40 MG VIAL IVP SCH ×2 (10:31→20:06)
[2021-04-23] MEDS ORDERED: cloNIDine 0.1 MG TAB PO PRN (17:09)
[2021-04-23] MEDS: SODIUM CHLORIDE 0.9% IVPB SCH (20:21)
[2021-04-23] MEDS: METHYLPREDNISOLONE SOD SUCC IVPB SCH (20:21)
[2021-04-24] MEDS: Albuterol 200 PUFF (6.7GM INHALER) INH SCH ×6 (02:30→22:23)
[2021-04-24] MEDS: Lorazepam 2 MG/ML VIAL SLOW IVP SCH ×2 (03:10→04:16)
[2021-04-24] MEDS ORDERED: PROPOFOL 200 MG/20 ML VIAL ONE (03:33)
[2021-04-24] MEDS ORDERED: Succinylcholine 200 MG/10 ml SYRINGE FS ONE (03:33)
[2021-04-24] MEDS ORDERED: Propofol 1,000 MG/100 ML VIAL IV ONE (03:38)
[2021-04-24] MEDS: Propofol 1,000 MG/100 ML VIAL IV PRN ×5 (03:40→22:37)
[2021-04-24] MEDS ORDERED: Fentanyl CADD 100 ML ONE ×2 (03:41→17:01)
[2021-04-24] MEDS: Fentanyl CADD 100 ML IV SCH ×2 (03:45→17:31)
[2021-04-24] MEDS ORDERED: Lorazepam 2 MG/ML VIAL ONE (03:54)
[2021-04-24] MEDS ORDERED: Vecuronium 10 MG VIAL ONE (03:58)
[2021-04-24] MEDS ORDERED: Fentanyl BOLUS 250 ML IVPB PRN (04:15)
[2021-04-24] MEDS ORDERED: Ventilator Sedation Protocol 1 EACH FS SCH (04:15)
[2021-04-24] MEDS ORDERED: Propofol BOLUS 1,000 MG/100 ML VIAL IV PRN (04:15)
[2021-04-24] MEDS ORDERED: DISCONTINUE PREVIOUS NARCOTIC PAIN MEDICATIONS AND BENZODIAZEPINES FS SCH (04:15)
[2021-04-24] MEDS: Cefepime 1 GM in Sodium Chloride 0.9% 100 ML IVPB SCH ×2 (04:31→18:10)
[2021-04-24 05:13] LABS: Actual Bicarbonate (HCO3a) 22.9 mEq/L (22-28); Base Excess (BEa) -2.8 mEq/L (-2.0 to +3.0); CO2 Tension 43.1 mmHg (35.0-45.0); Calcium, Ionized (arterial) 1.19 mmol/L (1.12-1.30); Carboxyhemoglobin (COHb) 0.1 gm% (0.0-3.0); Hemoglobin (Hb) 13.4 g/dL (14.0-18.0); O2 Tension (PaO2), arterial 84.9 mmHg (80.0-100.0); Potassium - ABG Lab 4.21 mmol/L (3.70-5.30); pH, Arterial 7.34 (7.35-7.45)
[2021-04-24 05:16] LABS: Puncture Site LR
[2021-04-24 05:17] LABS: ALV-art Gradient 574.225 mmHg (0-20)
[2021-04-24] MEDS: Vecuronium 10 MG VIAL IV PRN (06:24)
[2021-04-24] MEDS: Lorazepam 2 MG/ML VIAL SLOW IVP PRN (06:24)
[2021-04-24] MEDS: HumaLOG 300 UNITS/3 ML VIAL SC PRN ×2 (06:44→12:45)
[2021-04-24] MEDS: Enoxaparin Sodium 100 MG/ML SYRINGE SC SCH ×2 (08:14→20:02)
[2021-04-24] MEDS: Ascorbic Acid 500 mg Chewable Tablet PO SCH (08:15)
[2021-04-24] MEDS: Cholecalciferol 1,000 UNITS (25 MCG) TAB PO SCH (08:16)
[2021-04-24] MEDS: BARICITINIB 2 MG TAB PO SCH (08:17)
[2021-04-24] MEDS ORDERED: Electrolyte Replacement Protocol 1 EACH IVPB ONE (08:20)
[2021-04-24] MEDS ORDERED: Bisacodyl 10 MG SUPP PR PRN (08:20)
[2021-04-24 08:48] LABS: Mean Corpuscular HGB CONC 31.7 g/dL (32.0-36.0); Mean Corpuscular Hemoglobin 28.2 pg (27.0-31.0); Mean Corpuscular Volume 88.9 fL (78.0-98.0); Mean Platelet Volume 11.6 fL (7.4-10.4); Platelet Count 280 thou/uL (130-400); RBC Distribution Width 12.7 % (11.5-14.5); Red Blood Cell (RBC) Count 4.27 mill/uL (4.70-6.10); White Blood Cell (WBC) Count 21.2 thou/uL (4.8-10.8)
[2021-04-24] MEDS ORDERED: NIFEdipine XL 90 MG TAB PO SCH (09:00)
[2021-04-24] MEDS ORDERED: Electrolyte Replacement Protocol FS PRN (09:00)
[2021-04-24] MEDS: guaiFENesin/DM ER PO SCH (09:36)
[2021-04-24] MEDS: Furosemide 40 MG TAB PO SCH (09:36)
[2021-04-24] MEDS: Lantus 1000 UNITS/10 ML VIAL SC SCH (09:36)
[2021-04-24] MEDS: Pantoprazole 40 MG VIAL IVP SCH ×2 (09:37→20:03)
[2021-04-24 09:45] LABS: Band 4 % (5-11); Large Platelets SLIGHT; Lymphocytes 11 % (21-51); MDiff Complete? YES; Metamyelocyte 1 % (0-0); Monocytes 5 % (0-10); Neutrophil 79 % (42-75); Platelet Morphology Comment Appears Adequate; RBC Morphology Normal
[2021-04-24] MEDS: Metoprolol Tartrate 25 MG TAB PO SCH ×2 (09:55→17:36)
[2021-04-24] MEDS: Topiramate 25 MG TAB PO SCH (10:00)
[2021-04-24] MEDS: cloNIDine 0.2 MG TAB PO SCH ×2 (10:00→20:02)
[2021-04-24 11:07] LABS: ALT (SGPT) 91 U/L (8-55); AST (SGOT) 51 U/L (5-34); Albumin 2.7 g/dL (3.5-5.0); Alkaline Phosphatase 128 U/L (40-110); Anion Gap 11 mmol/L (10-20); BUN (Urea Nitrogen) 21 mg/dL (8.9-20.6); Bilirubin, Total 0.6 mg/dL (0.2-1.2); Calc. Creatinine Clearance 151 mL/min (70-130); Calcium 8.2 mg/dL (7.8-10.44); Carbon Dioxide 24 mmol/L (22-29); Chloride 104 mmol/L (98-107); Globulin 2.9 g/dL (2.4-3.5); Glucose 196 mg/dL (70-105); Potassium 4.8 mmol/L (3.5-5.1); Protein, Total 5.6 g/dL (6.0-8.3); Sodium 134 mmol/L (136-145)
[2021-04-24] MEDS: Valsartan 80 MG TAB PO SCH (18:31)
[2021-04-24] MEDS: Doxycycline 100 MG CAP PO SCH (18:31)
[2021-04-24] MEDS: SODIUM CHLORIDE 0.9% IVPB SCH (20:02)
[2021-04-24] MEDS: METHYLPREDNISOLONE SOD SUCC IVPB SCH (20:02)
[2021-04-25] MEDS: Albuterol 200 PUFF (6.7GM INHALER) INH SCH ×6 (01:45→23:13)
[2021-04-25] MEDS: Vecuronium 10 MG VIAL IV PRN ×4 (02:02→17:15)
[2021-04-25] MEDS: HumaLOG 300 UNITS/3 ML VIAL SC PRN ×3 (02:14→17:11)
[2021-04-25] MEDS: Propofol 1,000 MG/100 ML VIAL IV PRN ×6 (02:19→21:20)
[2021-04-25] MEDS: Cefepime 1 GM in Sodium Chloride 0.9% 100 ML IVPB SCH ×2 (04:54→18:09)
[2021-04-25] MEDS ORDERED: Norepinephrine 8 MG/0.9% NS 250 ML ONE (05:31)
[2021-04-25] MEDS ORDERED: Norepinephrine 8 MG/0.9% NS 250 ML IVPB SCH (06:00)
[2021-04-25] MEDS: Lorazepam 2 MG/ML VIAL SLOW IVP PRN ×2 (07:35→16:13)
[2021-04-25] MEDS: Pantoprazole 40 MG VIAL IVP SCH ×2 (08:30→21:20)
[2021-04-25] MEDS: Lantus 1000 UNITS/10 ML VIAL SC SCH (10:00)
[2021-04-25] MEDS: Cholecalciferol 1,000 UNITS (25 MCG) TAB PO SCH (10:00)
[2021-04-25] MEDS: Senokot S 8.6-50 MG TAB PO SCH ×2 (10:00→21:20)
[2021-04-25] MEDS: BARICITINIB 2 MG TAB PO SCH (10:00)
[2021-04-25] MEDS: Furosemide 40 MG TAB PO SCH ×2 (10:00→10:31)
[2021-04-25] MEDS: Topiramate 25 MG TAB PO SCH (10:00)
[2021-04-25] MEDS: Enoxaparin Sodium 100 MG/ML SYRINGE SC SCH ×2 (10:00→21:21)
[2021-04-25] MEDS: Ascorbic Acid 500 mg Chewable Tablet PO SCH (10:00)
[2021-04-25] MEDS: Polyethylene Glycol 3350 17 GM Packet PER TUBE SCH (10:00)
[2021-04-25] MEDS: Metoprolol Tartrate 25 MG TAB PO SCH ×2 (10:24→16:12)
[2021-04-25] MEDS: cloNIDine 0.2 MG TAB PO SCH ×2 (10:31→21:21)
[2021-04-25] MEDS ORDERED: Fentanyl CADD 100 ML ONE (12:49)
[2021-04-25] MEDS: Fentanyl CADD 100 ML IV SCH (12:59)
[2021-04-25 14:23] LABS: Hemoglobin 11.9 g/dL (14.0-18.0); Mean Corpuscular HGB CONC 32.5 g/dL (32.0-36.0); Mean Corpuscular Hemoglobin 29.2 pg (27.0-31.0); Mean Corpuscular Volume 89.8 fL (78.0-98.0); Mean Platelet Volume 11.3 fL (7.4-10.4); Platelet Count 286 thou/uL (130-400); Red Blood Cell (RBC) Count 4.07 mill/uL (4.70-6.10); White Blood Cell (WBC) Count 15.7 thou/uL (4.8-10.8)
[2021-04-25 14:40] LABS: Band 4 % (5-11); Large Platelets SLIGHT; Lymphocytes 4 % (21-51); MDiff Complete? YES; Metamyelocyte 2 % (0-0); Monocytes 3 % (0-10); Neutrophil 87 % (42-75); Platelet Morphology Comment Appears Adequate; Polychromasia SLIGHT = 2-3 cells (100X) (0-2/hpf)
[2021-04-25 14:49] LABS: ALT (SGPT) 86 U/L (8-55); AST (SGOT) 43 U/L (5-34); Albumin 2.5 g/dL (3.5-5.0); Alkaline Phosphatase 133 U/L (40-110); Anion Gap 10 mmol/L (10-20); BUN (Urea Nitrogen) 30 mg/dL (8.9-20.6); Bilirubin, Total 0.4 mg/dL (0.2-1.2); Calc. Creatinine Clearance 140 mL/min (70-130); Calcium 8.1 mg/dL (7.8-10.44); Carbon Dioxide 25 mmol/L (22-29); Chloride 107 mmol/L (98-107); Globulin 2.7 g/dL (2.4-3.5); Glucose 175 mg/dL (70-105); Potassium 4.6 mmol/L (3.5-5.1); Protein, Total 5.2 g/dL (6.0-8.3); Sodium 137 mmol/L (136-145)
[2021-04-25] MEDS: SODIUM CHLORIDE 0.9% IVPB SCH (16:13)
[2021-04-25] MEDS: METHYLPREDNISOLONE SOD SUCC IVPB SCH (16:13)
[2021-04-25] MEDS: Morphine 2 MG/ML VIAL SLOW IVP PRN ×2 (16:14→17:14)
[2021-04-25] MEDS: Sterile Water 10 ML VIAL IVP PRN ×2 (16:14→17:15)
[2021-04-26] MEDS: Propofol 1,000 MG/100 ML VIAL IV PRN ×6 (00:04→21:06)
[2021-04-26] MEDS: HumaLOG 300 UNITS/3 ML VIAL SC PRN ×4 (00:39→21:40)
[2021-04-26] MEDS ORDERED: Fentanyl CADD 100 ML ONE (02:51)
[2021-04-26] MEDS: Fentanyl CADD 100 ML IV SCH (02:54)
[2021-04-26] MEDS: Albuterol 200 PUFF (6.7GM INHALER) INH SCH ×6 (04:28→21:56)
[2021-04-26] MEDS: Cefepime 1 GM in Sodium Chloride 0.9% 100 ML IVPB SCH (05:13)
[2021-04-26] MEDS: Vecuronium 10 MG VIAL IV PRN ×5 (06:08→21:38)
[2021-04-26 07:00] LABS: #Eosinphils 0.1 thou/uL (0.0-0.7); #Lymphocytes 1.1 thou/uL (1.20-3.40); #Monocytes 1.6 thou/uL (0.11-0.59); %Basophils 0.1 % (0.0-1.0); %Eosinophils 0.4 % (0.0-10.0); %Lymphocytes 6.7 % (21.0-51.0); %Monocytes 9.3 % (0.0-10.0); %Neutrophils 83.5 % (42.0-75.0); Hemoglobin 12.5 g/dL (14.0-18.0); Mean Corpuscular HGB CONC 32.7 g/dL (32.0-36.0); Mean Corpuscular Hemoglobin 29.6 pg (27.0-31.0); Mean Corpuscular Volume 90.5 fL (78.0-98.0); Mean Platelet Volume 11.4 fL (7.4-10.4); Platelet Count 282 thou/uL (130-400); RBC Distribution Width 13.2 % (11.5-14.5); Red Blood Cell (RBC) Count 4.23 mill/uL (4.70-6.10); White Blood Cell (WBC) Count 16.7 thou/uL (4.8-10.8)
[2021-04-26 07:17] LABS: ALT (SGPT) 83 U/L (8-55); AST (SGOT) 43 U/L (5-34); Albumin 2.6 g/dL (3.5-5.0); Alkaline Phosphatase 147 U/L (40-110); Anion Gap 13 mmol/L (10-20); BUN (Urea Nitrogen) 29 mg/dL (8.9-20.6); Bilirubin, Total 0.3 mg/dL (0.2-1.2); CRP (Inflammatory) 1.45 mg/dL (= or < 0.5); Calc. Creatinine Clearance 132 mL/min (70-130); Calcium 8.1 mg/dL (7.8-10.44); Carbon Dioxide 23 mmol/L (22-29); Chloride 105 mmol/L (98-107); Globulin 3.2 g/dL (2.4-3.5); Glucose 262 mg/dL (70-105); Magnesium 2.5 mg/dL (1.6-2.6); Phosphorus 4.4 mg/dL (2.3-4.7); Potassium 5.4 mmol/L (3.5-5.1); Protein, Total 5.8 g/dL (6.0-8.3); Sodium 136 mmol/L (136-145)
[2021-04-26 07:47] LABS: Actual Bicarbonate (HCO3a) 23.7 mEq/L (22-28); Base Excess (BEa) -0.4 mEq/L (-2.0 to +3.0); CO2 Tension 37.1 mmHg (35.0-45.0); Calcium, Ionized (arterial) 1.18 mmol/L (1.12-1.30); Carboxyhemoglobin (COHb) 0.3 gm% (0.0-3.0); Hemoglobin (Hb) 12.4 g/dL (14.0-18.0); Potassium - ABG Lab 4.47 mmol/L (3.70-5.30); pH, Arterial 7.42 (7.35-7.45)
[2021-04-26] MEDS: Enoxaparin Sodium 100 MG/ML SYRINGE SC SCH ×2 (08:24→20:32)
[2021-04-26] MEDS: Lorazepam 2 MG/ML VIAL SLOW IVP PRN ×3 (08:24→15:58)
[2021-04-26] MEDS: Polyethylene Glycol 3350 17 GM Packet PER TUBE SCH (08:25)
[2021-04-26] MEDS: Furosemide 40 MG TAB PO SCH (08:25)
[2021-04-26] MEDS: cloNIDine 0.2 MG TAB PO SCH ×2 (08:25→21:38)
[2021-04-26] MEDS: Metoprolol Tartrate 25 MG TAB PO SCH ×2 (08:25→18:42)
[2021-04-26] MEDS: Cholecalciferol 1,000 UNITS (25 MCG) TAB PO SCH (08:25)
[2021-04-26] MEDS: BARICITINIB 2 MG TAB PO SCH (08:25)
[2021-04-26] MEDS: Senokot S 8.6-50 MG TAB PO SCH ×2 (08:26→20:32)
[2021-04-26] MEDS: Lantus 1000 UNITS/10 ML VIAL SC SCH (08:26)
[2021-04-26] MEDS: Ascorbic Acid 500 mg Chewable Tablet PO SCH (08:28)
[2021-04-26 09:05] LABS: ALV-art Gradient 255.425 mmHg (0-20); O2 Tension (PaO2), arterial 54.7 mmHg (80.0-100.0); Puncture Site RRA
[2021-04-26] MEDS: Topiramate 25 MG TAB PO SCH (10:00)
[2021-04-26] MEDS: Pantoprazole 40 MG VIAL IVP SCH ×2 (10:01→20:32)
[2021-04-26] MEDS: Morphine 2 MG/ML VIAL SLOW IVP PRN ×3 (10:09→15:58)
[2021-04-26] MEDS: SODIUM CHLORIDE 0.9% IVPB SCH (20:32)
[2021-04-26] MEDS: METHYLPREDNISOLONE SOD SUCC IVPB SCH (20:32)
[2021-04-27] MEDS: Albuterol 200 PUFF (6.7GM INHALER) INH SCH ×6 (02:36→22:37)
[2021-04-27] MEDS ORDERED: Fentanyl CADD 100 ML ONE ×2 (03:25→18:09)
[2021-04-27] MEDS: Fentanyl CADD 100 ML IV SCH ×2 (03:35→18:13)
[2021-04-27] MEDS: Propofol 1,000 MG/100 ML VIAL IV PRN ×6 (03:35→23:52)
[2021-04-27 04:12] LABS: #Eosinphils 0.1 thou/uL (0.0-0.7); #Lymphocytes 1.2 thou/uL (1.20-3.40); #Monocytes 1.1 thou/uL (0.11-0.59); #Neutrophils 10.6 thou/uL (1.40-6.50); %Eosinophils 0.7 % (0.0-10.0); %Lymphocytes 9.5 % (21.0-51.0); %Monocytes 8.7 % (0.0-10.0); %Neutrophils 81.1 % (42.0-75.0); Hemoglobin 12.1 g/dL (14.0-18.0); Mean Corpuscular HGB CONC 33.5 g/dL (32.0-36.0); Mean Corpuscular Hemoglobin 30.2 pg (27.0-31.0); Mean Corpuscular Volume 89.9 fL (78.0-98.0); Mean Platelet Volume 12.1 fL (7.4-10.4); Platelet Count 280 thou/uL (130-400); RBC Distribution Width 13.2 % (11.5-14.5); Red Blood Cell (RBC) Count 4.01 mill/uL (4.70-6.10); White Blood Cell (WBC) Count 13.1 thou/uL (4.8-10.8)
[2021-04-27] MEDS: HumaLOG 300 UNITS/3 ML VIAL SC PRN ×3 (04:35→17:11)
[2021-04-27 04:39] LABS: ALT (SGPT) 67 U/L (8-55); AST (SGOT) 30 U/L (5-34); Albumin 2.5 g/dL (3.5-5.0); Alkaline Phosphatase 130 U/L (40-110); Anion Gap 10 mmol/L (10-20); BUN (Urea Nitrogen) 30 mg/dL (8.9-20.6); Bilirubin, Total 0.4 mg/dL (0.2-1.2); CRP (Inflammatory) 0.82 mg/dL (= or < 0.5); Calc. Creatinine Clearance 161 mL/min (70-130); Calcium 8.3 mg/dL (7.8-10.44); Carbon Dioxide 24 mmol/L (22-29); Chloride 108 mmol/L (98-107); Globulin 2.8 g/dL (2.4-3.5); Glucose 230 mg/dL (70-105); Protein, Total 5.3 g/dL (6.0-8.3); Sodium 137 mmol/L (136-145)
[2021-04-27] MEDS: Vecuronium 10 MG VIAL IV PRN ×6 (04:48→19:57)
[2021-04-27] MEDS: Enoxaparin Sodium 100 MG/ML SYRINGE SC SCH ×2 (09:01→20:09)
[2021-04-27] MEDS: BARICITINIB 2 MG TAB PO SCH (09:02)
[2021-04-27] MEDS: Cholecalciferol 1,000 UNITS (25 MCG) TAB PO SCH (09:02)
[2021-04-27] MEDS: Ascorbic Acid 500 mg Chewable Tablet PO SCH (09:02)
[2021-04-27] MEDS: cloNIDine 0.2 MG TAB PO SCH ×2 (09:02→20:09)
[2021-04-27] MEDS: Metoprolol Tartrate 25 MG TAB PO SCH ×2 (09:02→17:11)
[2021-04-27] MEDS: Polyethylene Glycol 3350 17 GM Packet PER TUBE SCH (09:02)
[2021-04-27] MEDS: hydrALAZINE 20 MG/ML VIAL SLOW IVP PRN ×2 (09:03→20:09)
[2021-04-27] MEDS: Senokot S 8.6-50 MG TAB PO SCH ×2 (09:03→20:09)
[2021-04-27] MEDS: Pantoprazole 40 MG VIAL IVP SCH ×2 (09:07→19:57)
[2021-04-27] MEDS: NPH, Human Insulin Isophane 300 UNIT/3 ML VIAL SC SCH ×2 (09:08→20:10)
[2021-04-27] MEDS: Lorazepam 2 MG/ML VIAL SLOW IVP PRN ×2 (09:31→09:51)
[2021-04-27] MEDS: Topiramate 25 MG TAB PO SCH (10:08)
[2021-04-27] MEDS: METHYLPREDNISOLONE SOD SUCC IVPB SCH (18:15)
[2021-04-27] MEDS: SODIUM CHLORIDE 0.9% IVPB SCH (18:15)
[2021-04-28] MEDS: Albuterol 200 PUFF (6.7GM INHALER) INH SCH ×3 (02:40→21:30)
[2021-04-28] MEDS: Propofol 1,000 MG/100 ML VIAL IV PRN ×5 (03:40→22:08)
[2021-04-28] MEDS: Vecuronium 10 MG VIAL IV PRN ×6 (04:16→22:51)
[2021-04-28] MEDS: HumaLOG 300 UNITS/3 ML VIAL SC PRN ×3 (05:28→12:31)
[2021-04-28] MEDS: Pantoprazole 40 MG VIAL IVP SCH ×2 (08:16→20:12)
[2021-04-28] MEDS: Enoxaparin Sodium 100 MG/ML SYRINGE SC SCH ×2 (08:22→20:13)
[2021-04-28] MEDS: NPH, Human Insulin Isophane 300 UNIT/3 ML VIAL SC SCH ×2 (08:23→20:13)
[2021-04-28] MEDS: BARICITINIB 2 MG TAB PO SCH (08:23)
[2021-04-28] MEDS: Ascorbic Acid 500 mg Chewable Tablet PO SCH (08:23)
[2021-04-28] MEDS: Senokot S 8.6-50 MG TAB PO SCH ×2 (08:23→20:11)
[2021-04-28] MEDS: Metoprolol Tartrate 25 MG TAB PO SCH ×2 (08:23→17:13)
[2021-04-28] MEDS: Polyethylene Glycol 3350 17 GM Packet PER TUBE SCH (08:23)
[2021-04-28] MEDS: cloNIDine 0.2 MG TAB PO SCH ×2 (08:23→20:11)
[2021-04-28] MEDS: Cholecalciferol 1,000 UNITS (25 MCG) TAB PO SCH (08:23)
[2021-04-28] MEDS: Topiramate 25 MG TAB PO SCH (08:29)
[2021-04-28] MEDS ORDERED: Fentanyl CADD 0 ML ONE (11:41)
[2021-04-28] MEDS: Fentanyl CADD 100 ML IV SCH (11:43)
[2021-04-28] MEDS: Lorazepam 2 MG/ML VIAL SLOW IVP PRN ×4 (12:08→22:51)
[2021-04-28 13:45] LABS: #Eosinphils 0.1 thou/uL (0.0-0.7); #Lymphocytes 1.1 thou/uL (1.20-3.40); #Neutrophils 9.6 thou/uL (1.40-6.50); %Basophils 0.2 % (0.0-1.0); %Eosinophils 0.6 % (0.0-10.0); %Lymphocytes 9.2 % (21.0-51.0); %Monocytes 8.2 % (0.0-10.0); %Neutrophils 81.9 % (42.0-75.0); Hemoglobin 11.6 g/dL (14.0-18.0); Mean Corpuscular HGB CONC 33.2 g/dL (32.0-36.0); Mean Corpuscular Hemoglobin 30.1 pg (27.0-31.0); Mean Corpuscular Volume 90.7 fL (78.0-98.0); Platelet Count 306 thou/uL (130-400); RBC Distribution Width 13.6 % (11.5-14.5); Red Blood Cell (RBC) Count 3.86 mill/uL (4.70-6.10); White Blood Cell (WBC) Count 11.8 thou/uL (4.8-10.8)
[2021-04-28 14:04] LABS: ALT (SGPT) 57 U/L (8-55); AST (SGOT) 27 U/L (5-34); Albumin 2.6 g/dL (3.5-5.0); Alkaline Phosphatase 133 U/L (40-110); Anion Gap 9 mmol/L (10-20); BUN (Urea Nitrogen) 30 mg/dL (8.9-20.6); Bilirubin, Total 0.3 mg/dL (0.2-1.2); Calc. Creatinine Clearance 173 mL/min (70-130); Calcium 8.5 mg/dL (7.8-10.44); Carbon Dioxide 29 mmol/L (22-29); Chloride 110 mmol/L (98-107); Globulin 2.6 g/dL (2.4-3.5); Glucose 146 mg/dL (70-105); Potassium 4.5 mmol/L (3.5-5.1); Protein, Total 5.2 g/dL (6.0-8.3); Sodium 143 mmol/L (136-145)
[2021-04-28] MEDS: SODIUM CHLORIDE 0.9% IVPB SCH (20:13)
[2021-04-28] MEDS: METHYLPREDNISOLONE SOD SUCC IVPB SCH (20:13)
[2021-04-28] MEDS ORDERED: Sterile Water 10 ML ONE ×3 (20:15→22:49)
[2021-04-28] MEDS: Sterile Water 10 ML VIAL IVP PRN ×2 (20:15→21:56)
[2021-04-28] MEDS: hydrALAZINE 20 MG/ML VIAL SLOW IVP PRN (20:57)
[2021-04-28] MEDS ORDERED: Fentanyl CADD 100 ML ONE ×2 (23:20→23:54)
[2021-04-28] MEDS ORDERED: Norepinephrine 8 MG/0.9% NS 250 ML ONE (23:37)
[2021-04-28] MEDS: Norepinephrine 8 MG/0.9% NS 250 ML IVPB SCH (23:50)
[2021-04-29] MEDS: Sterile Water 10 ML VIAL IVP PRN ×2 (00:02→03:16)
[2021-04-29] MEDS: Fentanyl CADD 100 ML IV SCH ×3 (00:03→22:26)
[2021-04-29] MEDS: Midazolam In 0.9 % NaCl/PF 100 ML IVPB PRN ×2 (00:05→22:19)
[2021-04-29] MEDS: Albuterol 200 PUFF (6.7GM INHALER) INH SCH ×7 (00:40→22:29)
[2021-04-29] MEDS: Propofol 1,000 MG/100 ML VIAL IV PRN (03:04)
[2021-04-29] MEDS: Vecuronium 10 MG VIAL IV PRN ×3 (03:16→22:19)
[2021-04-29 04:33] LABS: ALT (SGPT) 63 U/L (8-55); AST (SGOT) 31 U/L (5-34); Alkaline Phosphatase 153 U/L (40-110); Anion Gap 13 mmol/L (10-20); BUN (Urea Nitrogen) 33 mg/dL (8.9-20.6); Bilirubin, Total 0.5 mg/dL (0.2-1.2); Calc. Creatinine Clearance 144 mL/min (70-130); Carbon Dioxide 25 mmol/L (22-29); Chloride 107 mmol/L (98-107); Globulin 2.9 g/dL (2.4-3.5); Glucose 209 mg/dL (70-105); Potassium 5.1 mmol/L (3.5-5.1); Protein, Total 5.9 g/dL (6.0-8.3); Sodium 140 mmol/L (136-145)
[2021-04-29 04:43] LABS: Band 10 % (5-11); Hemoglobin 12.7 g/dL (14.0-18.0); Hypochromia SLIGHT = 6-15 cells (100X) (0-5/hpf); Lymphocytes 8 % (21-51); MDiff Complete? YES; Mean Corpuscular HGB CONC 31.9 g/dL (32.0-36.0); Mean Corpuscular Hemoglobin 29.4 pg (27.0-31.0); Mean Corpuscular Volume 92.1 fL (78.0-98.0); Mean Platelet Volume 11.7 fL (7.4-10.4); Monocytes 11 % (0-10); Neutrophil 71 % (42-75); Platelet Count 422 thou/uL (130-400); Platelet Morphology Comment Appears Increased; RBC Distribution Width 13.8 % (11.5-14.5); Red Blood Cell (RBC) Count 4.32 mill/uL (4.70-6.10); White Blood Cell (WBC) Count 21.2 thou/uL (4.8-10.8)
[2021-04-29] MEDS: Metoprolol Tartrate 25 MG TAB PO SCH ×2 (08:03→16:14)
[2021-04-29 08:09] LABS: Actual Bicarbonate (HCO3a) 24.4 mEq/L (22-28); Base Excess (BEa) -0.7 mEq/L (-2.0 to +3.0); CO2 Tension 41.8 mmHg (35.0-45.0); Calcium, Ionized (arterial) 1.22 mmol/L (1.12-1.30); Carboxyhemoglobin (COHb) 0.3 gm% (0.0-3.0); Hemoglobin (Hb) 13.4 g/dL (14.0-18.0); O2 Tension (PaO2), arterial 76.5 mmHg (80.0-100.0); Potassium - ABG Lab 4.74 mmol/L (3.70-5.30); pH, Arterial 7.38 (7.35-7.45)
[2021-04-29] MEDS: Pantoprazole 40 MG VIAL IVP SCH ×2 (08:11→20:19)
[2021-04-29] MEDS: Ascorbic Acid 500 mg Chewable Tablet PO SCH (08:11)
[2021-04-29] MEDS: cloNIDine 0.2 MG TAB PO SCH ×2 (08:12→20:19)
[2021-04-29] MEDS: Enoxaparin Sodium 100 MG/ML SYRINGE SC SCH ×2 (08:13→20:19)
[2021-04-29] MEDS: Polyethylene Glycol 3350 17 GM Packet PER TUBE SCH (08:14)
[2021-04-29] MEDS: Senokot S 8.6-50 MG TAB PO SCH ×2 (08:14→20:19)
[2021-04-29] MEDS: Cholecalciferol 1,000 UNITS (25 MCG) TAB PO SCH (08:15)
[2021-04-29 08:17] LABS: Puncture Site LRA
[2021-04-29] MEDS: Topiramate 25 MG TAB PO SCH (08:18)
[2021-04-29] MEDS: NPH, Human Insulin Isophane 300 UNIT/3 ML VIAL SC SCH ×2 (09:49→20:20)
[2021-04-29] MEDS: HumaLOG 300 UNITS/3 ML VIAL SC PRN ×3 (09:53→17:18)
[2021-04-29] MEDS: BARICITINIB 1 MG TAB PO SCH (10:59)
[2021-04-29] MEDS ORDERED: Fentanyl CADD 100 ML ONE ×2 (11:15→22:24)
[2021-04-29] MEDS: SODIUM CHLORIDE 0.9% IVPB SCH (18:33)
[2021-04-29] MEDS: METHYLPREDNISOLONE SOD SUCC IVPB SCH (18:33)
[2021-04-29] MEDS: Lorazepam 2 MG/ML VIAL SLOW IVP PRN ×2 (22:19→23:05)
[2021-04-29] MEDS: Rocuronium Bromide 50 MG/5 ML VIAL IVP PRN (23:15)
[2021-04-29] MEDS ORDERED: Rocuronium Bromide 10 MG/ML (10ML VIAL) ONE (23:17)
[2021-04-29 23:33] LABS: Actual Bicarbonate (HCO3a) 26.8 mEq/L (22-28); Base Excess (BEa) 1.8 mEq/L (-2.0 to +3.0); CO2 Tension 43.6 mmHg (35.0-45.0); Calcium, Ionized (arterial) 1.19 mmol/L (1.12-1.30); Carboxyhemoglobin (COHb) 0.1 gm% (0.0-3.0); Hemoglobin (Hb) 11.9 g/dL (14.0-18.0); Potassium - ABG Lab 4.45 mmol/L (3.70-5.30); pH, Arterial 7.41 (7.35-7.45)
[2021-04-29 23:35] LABS: O2 Tension (PaO2), arterial 43.3 mmHg (80.0-100.0)
[2021-04-29 23:36] LABS: Puncture Site RR
[2021-04-29] MEDS: Norepinephrine 8 MG/0.9% NS 250 ML IVPB SCH (23:50)
[2021-04-30] MEDS ORDERED: Rocuronium Bromide 50 MG/5 ML VIAL IVP PRN (00:31)
[2021-04-30] MEDS: Lorazepam 2 MG/ML VIAL SLOW IVP PRN (01:00)
[2021-04-30] MEDS: Vecuronium 10 MG VIAL IV PRN ×3 (01:00→17:34)
[2021-04-30] MEDS: Sterile Water 10 ML VIAL IVP PRN (01:00)
[2021-04-30] MEDS: Albuterol 200 PUFF (6.7GM INHALER) INH SCH ×6 (02:50→22:10)
[2021-04-30] MEDS: Rocuronium Bromide 50 MG/5 ML VIAL IVP PRN (03:45)
[2021-04-30] MEDS: BARICITINIB 2 MG TAB PO SCH (04:31)
[2021-04-30] MEDS ORDERED: Sterile Water 10 ML ONE (04:49)
[2021-04-30] MEDS ORDERED: Fentanyl CADD 100 ML ONE ×3 (05:40→23:12)
[2021-04-30] MEDS: Fentanyl CADD 100 ML IV SCH ×2 (05:52→23:22)
[2021-04-30] MEDS: Metoprolol Tartrate 25 MG TAB PO SCH ×2 (08:00→17:36)
[2021-04-30 08:22] LABS: Actual Bicarbonate (HCO3a) 25.2 mEq/L (22-28); Base Excess (BEa) 1.2 mEq/L (-2.0 to +3.0); CO2 Tension 38.1 mmHg (35.0-45.0); Calcium, Ionized (arterial) 1.18 mmol/L (1.12-1.30); Carboxyhemoglobin (COHb) 0.3 gm% (0.0-3.0); Hemoglobin (Hb) 12.3 g/dL (14.0-18.0); Potassium - ABG Lab 4.43 mmol/L (3.70-5.30); pH, Arterial 7.44 (7.35-7.45)
[2021-04-30 08:23] LABS: O2 Tension (PaO2), arterial 56.6 mmHg (80.0-100.0); Puncture Site LRA
[2021-04-30 08:24] LABS: ALV-art Gradient 608.775 mmHg (0-20)
[2021-04-30] MEDS: Pantoprazole 40 MG VIAL IVP SCH (08:30)
[2021-04-30] MEDS: Ascorbic Acid 500 mg Chewable Tablet PO SCH (08:30)
[2021-04-30] MEDS: cloNIDine 0.2 MG TAB PO SCH ×2 (08:31→20:37)
[2021-04-30] MEDS: BARICITINIB 1 MG TAB PO SCH (08:31)
[2021-04-30] MEDS: Cholecalciferol 1,000 UNITS (25 MCG) TAB PO SCH (08:31)
[2021-04-30] MEDS: Polyethylene Glycol 3350 17 GM Packet PER TUBE SCH (08:32)
[2021-04-30] MEDS: Enoxaparin Sodium 100 MG/ML SYRINGE SC SCH ×2 (08:32→20:38)
[2021-04-30] MEDS: Senokot S 8.6-50 MG TAB PO SCH ×2 (08:33→20:39)
[2021-04-30] MEDS: NPH, Human Insulin Isophane 300 UNIT/3 ML VIAL SC SCH ×2 (08:33→20:38)
[2021-04-30] MEDS: HumaLOG 300 UNITS/3 ML VIAL SC PRN ×2 (08:34→13:46)
[2021-04-30] MEDS: Topiramate 25 MG TAB PO SCH (08:34)
[2021-04-30] MEDS: Pantoprazole 40 MG GRANULES PACKET PER TUBE SCH ×2 (11:11→21:02)
[2021-04-30] MEDS: Midazolam In 0.9 % NaCl/PF 100 ML IVPB PRN ×2 (11:12→23:21)
[2021-04-30] MEDS ORDERED: Dextrose 50% Abboject 50 ML SYRINGE ONE (20:33)
[2021-04-30] MEDS: METHYLPREDNISOLONE SOD SUCC IVPB SCH (20:37)
[2021-04-30] MEDS: SODIUM CHLORIDE 0.9% IVPB SCH (20:37)
[2021-05-01] MEDS: Albuterol 200 PUFF (6.7GM INHALER) INH SCH ×6 (02:29→22:27)
[2021-05-01 04:02] LABS: #Lymphocytes 0.9 thou/uL (1.20-3.40); #Monocytes 1.4 thou/uL (0.11-0.59); #Neutrophils 15.4 thou/uL (1.40-6.50); %Basophils 0.2 % (0.0-1.0); %Eosinophils 0.1 % (0.0-10.0); %Lymphocytes 5.2 % (21.0-51.0); %Monocytes 7.7 % (0.0-10.0); %Neutrophils 86.7 % (42.0-75.0); Hemoglobin 10.7 g/dL (14.0-18.0); Mean Corpuscular HGB CONC 32.1 g/dL (32.0-36.0); Mean Corpuscular Hemoglobin 29.7 pg (27.0-31.0); Mean Corpuscular Volume 92.5 fL (78.0-98.0); Mean Platelet Volume 11.5 fL (7.4-10.4); Platelet Count 227 thou/uL (130-400); Red Blood Cell (RBC) Count 3.59 mill/uL (4.70-6.10); White Blood Cell (WBC) Count 17.8 thou/uL (4.8-10.8)
[2021-05-01 04:42] LABS: Anion Gap 10 mmol/L (10-20); BUN (Urea Nitrogen) 34 mg/dL (8.9-20.6); Calc. Creatinine Clearance 160 mL/min (70-130); Calcium 8.1 mg/dL (7.8-10.44); Carbon Dioxide 25 mmol/L (22-29); Chloride 110 mmol/L (98-107); Glucose 125 mg/dL (70-105); Potassium 4.7 mmol/L (3.5-5.1); Sodium 140 mmol/L (136-145)
[2021-05-01] MEDS ORDERED: Fentanyl CADD 100 ML ONE ×3 (07:32→23:57)
[2021-05-01 07:40] LABS: Actual Bicarbonate (HCO3a) 23.2 mEq/L (22-28); Base Excess (BEa) -0.2 mEq/L (-2.0 to +3.0); CO2 Tension 33.8 mmHg (35.0-45.0); Calcium, Ionized (arterial) 1.24 mmol/L (1.12-1.30); Carboxyhemoglobin (COHb) 0.3 gm% (0.0-3.0); Hemoglobin (Hb) 12.8 g/dL (14.0-18.0); Potassium - ABG Lab 4.51 mmol/L (3.70-5.30); pH, Arterial 7.45 (7.35-7.45)
[2021-05-01] MEDS: Fentanyl CADD 100 ML IV SCH (07:42)
[2021-05-01 08:21] LABS: O2 Tension (PaO2), arterial 55.3 mmHg (80.0-100.0); Puncture Site RRA
[2021-05-01] MEDS: Metoprolol Tartrate 25 MG TAB PO SCH ×2 (09:02→17:29)
[2021-05-01] MEDS: Ascorbic Acid 500 mg Chewable Tablet PO SCH (09:03)
[2021-05-01] MEDS: Cholecalciferol 1,000 UNITS (25 MCG) TAB PO SCH (09:03)
[2021-05-01] MEDS: cloNIDine 0.2 MG TAB PO SCH ×2 (09:04→20:19)
[2021-05-01] MEDS: Enoxaparin Sodium 100 MG/ML SYRINGE SC SCH ×2 (09:06→20:50)
[2021-05-01] MEDS: Polyethylene Glycol 3350 17 GM Packet PER TUBE SCH (09:07)
[2021-05-01] MEDS: Senokot S 8.6-50 MG TAB PO SCH ×2 (09:07→20:50)
[2021-05-01] MEDS: Pantoprazole 40 MG GRANULES PACKET PER TUBE SCH ×2 (09:07→20:50)
[2021-05-01] MEDS: Topiramate 25 MG TAB PO SCH (09:15)
[2021-05-01] MEDS: Midazolam In 0.9 % NaCl/PF 100 ML IVPB PRN (12:45)
[2021-05-01] MEDS: HumaLOG 300 UNITS/3 ML VIAL SC PRN ×3 (12:49→20:20)
[2021-05-01] MEDS: NPH, Human Insulin Isophane 300 UNIT/3 ML VIAL SC SCH ×2 (14:30→21:09)
[2021-05-01] MEDS: Vecuronium 10 MG VIAL IV PRN (14:31)
[2021-05-01] MEDS: Propofol 1,000 MG/100 ML VIAL IV PRN (14:58)
[2021-05-01] MEDS: Mometasone 200 MCG/Formoterol 5 MCG 120 PUFF INHALER INH SCH (18:55)
[2021-05-01] MEDS: METHYLPREDNISOLONE SOD SUCC IVPB SCH (20:19)
[2021-05-01] MEDS: SODIUM CHLORIDE 0.9% IVPB SCH (20:19)
[2021-05-02] MEDS: Fentanyl CADD 100 ML IV SCH ×3 (00:02→17:06)
[2021-05-02] MEDS: Vecuronium 10 MG VIAL IV PRN ×2 (00:36→02:30)
[2021-05-02] MEDS: Midazolam In 0.9 % NaCl/PF 100 ML IVPB PRN ×2 (00:48→13:43)
[2021-05-02] MEDS: Albuterol 200 PUFF (6.7GM INHALER) INH SCH ×6 (03:37→23:01)
[2021-05-02 04:21] LABS: #Eosinphils 0.1 thou/uL (0.0-0.7); #Lymphocytes 0.7 thou/uL (1.20-3.40); #Monocytes 1.5 thou/uL (0.11-0.59); %Basophils 0.2 % (0.0-1.0); %Eosinophils 0.4 % (0.0-10.0); %Lymphocytes 3.9 % (21.0-51.0); %Monocytes 8.4 % (0.0-10.0); %Neutrophils 87.2 % (42.0-75.0); Hemoglobin 10.4 g/dL (14.0-18.0); Mean Corpuscular HGB CONC 32.9 g/dL (32.0-36.0); Mean Corpuscular Hemoglobin 30.4 pg (27.0-31.0); Mean Corpuscular Volume 92.6 fL (78.0-98.0); Mean Platelet Volume 11.5 fL (7.4-10.4); Platelet Count 203 thou/uL (130-400); RBC Distribution Width 13.9 % (11.5-14.5); Red Blood Cell (RBC) Count 3.41 mill/uL (4.70-6.10); White Blood Cell (WBC) Count 18.4 thou/uL (4.8-10.8)
[2021-05-02 04:40] LABS: Anion Gap 13 mmol/L (10-20); BUN (Urea Nitrogen) 38 mg/dL (8.9-20.6); Calc. Creatinine Clearance 158 mL/min (70-130); Calcium 8.3 mg/dL (7.8-10.44); Carbon Dioxide 23 mmol/L (22-29); Chloride 111 mmol/L (98-107); Glucose 243 mg/dL (70-105); Potassium 4.6 mmol/L (3.5-5.1); Sodium 142 mmol/L (136-145)
[2021-05-02 07:23] LABS: Actual Bicarbonate (HCO3a) 25.3 mEq/L (22-28); Base Excess (BEa) 1.8 mEq/L (-2.0 to +3.0); CO2 Tension 36.1 mmHg (35.0-45.0); Calcium, Ionized (arterial) 1.26 mmol/L (1.12-1.30); Carboxyhemoglobin (COHb) 0.5 gm% (0.0-3.0); Hemoglobin (Hb) 13.8 g/dL (14.0-18.0); pH, Arterial 7.46 (7.35-7.45)
[2021-05-02] MEDS: Mometasone 200 MCG/Formoterol 5 MCG 120 PUFF INHALER INH SCH ×2 (07:43→18:50)
[2021-05-02 07:45] LABS: ALV-art Gradient 615.275 mmHg (0-20); O2 Tension (PaO2), arterial 52.6 mmHg (80.0-100.0); Puncture Site RRA
[2021-05-02] MEDS ORDERED: Fentanyl CADD 100 ML ONE ×2 (08:19→16:53)
[2021-05-02] MEDS: NPH, Human Insulin Isophane 300 UNIT/3 ML VIAL SC SCH ×2 (08:28→20:47)
[2021-05-02] MEDS: Cholecalciferol 1,000 UNITS (25 MCG) TAB PO SCH (08:31)
[2021-05-02] MEDS: Ascorbic Acid 500 mg Chewable Tablet PO SCH (08:31)
[2021-05-02] MEDS: Enoxaparin Sodium 100 MG/ML SYRINGE SC SCH ×2 (08:31→20:43)
[2021-05-02] MEDS: cloNIDine 0.2 MG TAB PO SCH ×2 (08:31→20:36)
[2021-05-02] MEDS: Metoprolol Tartrate 25 MG TAB PO SCH ×2 (08:32→16:11)
[2021-05-02] MEDS: Polyethylene Glycol 3350 17 GM Packet PER TUBE SCH (08:32)
[2021-05-02] MEDS: Senokot S 8.6-50 MG TAB PO SCH ×2 (08:32→20:44)
[2021-05-02] MEDS: Topiramate 25 MG TAB PO SCH (08:37)
[2021-05-02] MEDS: Pantoprazole 40 MG GRANULES PACKET PER TUBE SCH ×2 (08:37→20:44)
[2021-05-02] MEDS ORDERED: Vancomycin HCl 2.5 GM in Sodium Chloride 0.9% 500 ML IVPB SCH (10:45)
[2021-05-02] MEDS: HumaLOG 300 UNITS/3 ML VIAL SC PRN ×2 (13:04→17:39)
[2021-05-02] MEDS: Vancomycin 1.5 GRAM/300 ML BAG 1.5 GM in Premix Bag 1 BAG IVPB SCH (17:27)
[2021-05-02] MEDS: METHYLPREDNISOLONE SOD SUCC IVPB SCH (20:52)
[2021-05-02] MEDS: SODIUM CHLORIDE 0.9% IVPB SCH (20:52)
[2021-05-03] MEDS: hydrALAZINE 20 MG/ML VIAL SLOW IVP PRN (02:29)
[2021-05-03] MEDS: Vancomycin 1.5 GRAM/300 ML BAG 1.5 GM in Premix Bag 1 BAG IVPB SCH ×3 (02:30→17:01)
[2021-05-03] MEDS: Albuterol 200 PUFF (6.7GM INHALER) INH SCH ×6 (02:36→22:05)
[2021-05-03] MEDS: Midazolam In 0.9 % NaCl/PF 100 ML IVPB PRN ×2 (02:41→16:01)
[2021-05-03] MEDS: Vecuronium 10 MG VIAL IV PRN ×2 (02:50→03:41)
[2021-05-03] MEDS ORDERED: Labetalol HCl 100 MG/20 ML VIAL SLOW IVP SCH (03:30)
[2021-05-03] MEDS ORDERED: Sterile Water 10 ML ONE (03:43)
[2021-05-03 04:25] LABS: ALT (SGPT) 68 U/L (8-55); AST (SGOT) 73 U/L (5-34); Albumin 2.8 g/dL (3.5-5.0); Alkaline Phosphatase 217 U/L (40-110); Anion Gap 14 mmol/L (10-20); BUN (Urea Nitrogen) 36 mg/dL (8.9-20.6); Bilirubin, Total 1.2 mg/dL (0.2-1.2); Calc. Creatinine Clearance 152 mL/min (70-130); Calcium 8.7 mg/dL (7.8-10.44); Carbon Dioxide 23 mmol/L (22-29); Chloride 112 mmol/L (98-107); Glucose 203 mg/dL (70-105); Magnesium 2.4 mg/dL (1.6-2.6); Potassium 4.2 mmol/L (3.5-5.1); Protein, Total 5.8 g/dL (6.0-8.3); Sodium 145 mmol/L (136-145)
[2021-05-03 04:38] LABS: Band 8 % (5-11); Hemoglobin 11.9 g/dL (14.0-18.0); Lymphocytes 14 % (21-51); MDiff Complete? YES; Mean Corpuscular HGB CONC 31.9 g/dL (32.0-36.0); Mean Platelet Volume 11.2 fL (7.4-10.4); Monocytes 8 % (0-10); Neutrophil 70 % (42-75); Platelet Count 259 thou/uL (130-400); RBC Distribution Width 14.1 % (11.5-14.5); Red Blood Cell (RBC) Count 3.95 mill/uL (4.70-6.10); White Blood Cell (WBC) Count 24.5 thou/uL (4.8-10.8)
[2021-05-03] MEDS: Acetaminophen 325 MG TAB PO PRN ×3 (05:08→16:14)
[2021-05-03] MEDS: Mometasone 200 MCG/Formoterol 5 MCG 120 PUFF INHALER INH SCH ×2 (07:58→18:45)
[2021-05-03] MEDS: Topiramate 25 MG TAB PO SCH (08:04)
[2021-05-03] MEDS: cloNIDine 0.2 MG TAB PO SCH ×2 (08:04→20:39)
[2021-05-03] MEDS: Polyethylene Glycol 3350 17 GM Packet PER TUBE SCH (08:04)
[2021-05-03] MEDS: Pantoprazole 40 MG GRANULES PACKET PER TUBE SCH ×2 (08:05→20:39)
[2021-05-03] MEDS: Ascorbic Acid 500 mg Chewable Tablet PO SCH (08:05)
[2021-05-03] MEDS: Metoprolol Tartrate 25 MG TAB PO SCH ×2 (08:05→16:02)
[2021-05-03] MEDS: NPH, Human Insulin Isophane 300 UNIT/3 ML VIAL SC SCH ×2 (08:05→20:41)
[2021-05-03] MEDS: Cholecalciferol 1,000 UNITS (25 MCG) TAB PO SCH (08:05)
[2021-05-03] MEDS: Senokot S 8.6-50 MG TAB PO SCH ×2 (08:05→22:42)
[2021-05-03] MEDS: Enoxaparin Sodium 100 MG/ML SYRINGE SC SCH ×2 (08:05→20:37)
[2021-05-03 08:18] LABS: Actual Bicarbonate (HCO3a) 23.3 mEq/L (22-28); Base Excess (BEa) -0.8 mEq/L (-2.0 to +3.0); CO2 Tension 36.4 mmHg (35.0-45.0); Calcium, Ionized (arterial) 1.21 mmol/L (1.12-1.30); Carboxyhemoglobin (COHb) 0.3 gm% (0.0-3.0); Hemoglobin (Hb) 11.9 g/dL (14.0-18.0); O2 Tension (PaO2), arterial 61.3 mmHg (80.0-100.0); Potassium - ABG Lab 4.25 mmol/L (3.70-5.30); pH, Arterial 7.42 (7.35-7.45)
[2021-05-03 08:34] LABS: Puncture Site RRA
[2021-05-03] MEDS ORDERED: Fentanyl CADD 100 ML ONE ×2 (08:36→09:37)
[2021-05-03] MEDS: Fentanyl CADD 100 ML IV SCH ×2 (08:43→19:43)
[2021-05-03] MEDS: Propofol 1,000 MG/100 ML VIAL IV PRN ×2 (09:06→19:42)
[2021-05-03 09:30] LABS: Bacteria/HPF None Seen HPF (None Seen); Bilirubin Negative (Negative); Blood, Urine 1+ (Negative); Clarity Clear (Clear); Glucose, Urine (Dipstick) Normal (Negative); Ketone, Urine Negative (Negative); Leukocyte Negative Leu/uL (Negative); Nitrite Negative (Negative); Protein, Urine (Dipstick) 50 mg/dL (Neg-Trace); RBC/HPF 0-3 HPF (0-3); Squamous Epithelial 0-3 HPF (0-3); Urobilinogen 6 mg/dL (Less than 2); WBC/HPF 0-3 HPF (0-3); pH, Urine 5.5 (5.0-9.0)
[2021-05-03 09:33] LABS: Urine Culture Reflex No No
[2021-05-03] MEDS: Cefepime 1 GM in Sodium Chloride 0.9% 100 ML IVPB SCH ×2 (10:00→20:38)
[2021-05-03] MEDS: HumaLOG 300 UNITS/3 ML VIAL SC PRN (13:05)
[2021-05-03] MEDS: Morphine 4 MG/ML VIAL SLOW IVP PRN (16:14)
[2021-05-03 18:18] LABS: Vancomycin, Trough 57.2 ug/mL
[2021-05-03] MEDS: METHYLPREDNISOLONE SOD SUCC IVPB SCH (20:40)
[2021-05-03] MEDS: SODIUM CHLORIDE 0.9% IVPB SCH (20:40)
[2021-05-04] MEDS: HumaLOG 300 UNITS/3 ML VIAL SC PRN ×2 (00:27→12:27)
[2021-05-04] MEDS: Albuterol 200 PUFF (6.7GM INHALER) INH SCH ×6 (02:51→22:46)
[2021-05-04] MEDS: Vancomycin 1.5 GRAM/300 ML BAG 1.5 GM in Premix Bag 1 BAG IVPB SCH (03:27)
[2021-05-04 04:18] LABS: #Basophils 0.1 thou/uL (0.0-0.2); #Eosinphils 0.1 thou/uL (0.0-0.7); #Monocytes 1.3 thou/uL (0.11-0.59); %Basophils 0.7 % (0.0-1.0); %Eosinophils 0.7 % (0.0-10.0); %Lymphocytes 6.8 % (21.0-51.0); %Monocytes 8.7 % (0.0-10.0); %Neutrophils 83.1 % (42.0-75.0); Hemoglobin 9.6 g/dL (14.0-18.0); Mean Corpuscular HGB CONC 31.4 g/dL (32.0-36.0); Mean Corpuscular Hemoglobin 29.3 pg (27.0-31.0); Mean Corpuscular Volume 93.4 fL (78.0-98.0); Mean Platelet Volume 11.6 fL (7.4-10.4); Platelet Count 160 thou/uL (130-400); RBC Distribution Width 14.3 % (11.5-14.5); Red Blood Cell (RBC) Count 3.27 mill/uL (4.70-6.10); White Blood Cell (WBC) Count 14.4 thou/uL (4.8-10.8)
[2021-05-04 04:31] LABS: ALT (SGPT) 58 U/L (8-55); AST (SGOT) 44 U/L (5-34); Albumin 2.3 g/dL (3.5-5.0); Alkaline Phosphatase 171 U/L (40-110); Anion Gap 12 mmol/L (10-20); BUN (Urea Nitrogen) 31 mg/dL (8.9-20.6); Bilirubin, Total 0.6 mg/dL (0.2-1.2); Calc. Creatinine Clearance 174 mL/min (70-130); Carbon Dioxide 23 mmol/L (22-29); Chloride 115 mmol/L (98-107); Globulin 2.5 g/dL (2.4-3.5); Glucose 172 mg/dL (70-105); Magnesium 2.3 mg/dL (1.6-2.6); Phosphorus 3.5 mg/dL (2.3-4.7); Potassium 4.1 mmol/L (3.5-5.1); Protein, Total 4.8 g/dL (6.0-8.3); Sodium 146 mmol/L (136-145)
[2021-05-04] MEDS: Propofol 1,000 MG/100 ML VIAL IV PRN ×5 (05:29→20:09)
[2021-05-04] MEDS: Mometasone 200 MCG/Formoterol 5 MCG 120 PUFF INHALER INH SCH ×2 (07:20→19:05)
[2021-05-04] MEDS: Morphine 4 MG/ML VIAL SLOW IVP PRN ×3 (07:35→12:39)
[2021-05-04 07:38] LABS: Actual Bicarbonate (HCO3a) 21.9 mEq/L (22-28); Base Excess (BEa) -2.6 mEq/L (-2.0 to +3.0); CO2 Tension 37.4 mmHg (35.0-45.0); Calcium, Ionized (arterial) 1.27 mmol/L (1.12-1.30); Carboxyhemoglobin (COHb) 0.8 gm% (0.0-3.0); Hemoglobin (Hb) 15.2 g/dL (14.0-18.0); Potassium - ABG Lab 4.13 mmol/L (3.70-5.30); pH, Arterial 7.39 (7.35-7.45)
[2021-05-04 07:39] LABS: Puncture Site RRA
[2021-05-04] MEDS: Topiramate 25 MG TAB PO SCH (08:05)
[2021-05-04] MEDS: Acetaminophen 325 MG TAB PO PRN ×2 (08:05→17:34)
[2021-05-04] MEDS: Metoprolol Tartrate 25 MG TAB PO SCH ×2 (08:06→17:34)
[2021-05-04] MEDS: Cholecalciferol 1,000 UNITS (25 MCG) TAB PO SCH (08:06)
[2021-05-04] MEDS: cloNIDine 0.2 MG TAB PO SCH ×2 (08:06→20:23)
[2021-05-04] MEDS: Enoxaparin Sodium 100 MG/ML SYRINGE SC SCH (08:06)
[2021-05-04] MEDS: Ascorbic Acid 500 mg Chewable Tablet PO SCH (08:06)
[2021-05-04] MEDS: Senokot S 8.6-50 MG TAB PO SCH ×2 (08:06→20:09)
[2021-05-04] MEDS: Cefepime 1 GM in Sodium Chloride 0.9% 100 ML IVPB SCH ×2 (08:07→20:09)
[2021-05-04] MEDS: Polyethylene Glycol 3350 17 GM Packet PER TUBE SCH (08:07)
[2021-05-04] MEDS: NPH, Human Insulin Isophane 300 UNIT/3 ML VIAL SC SCH ×2 (08:08→20:09)
[2021-05-04] MEDS ORDERED: Fentanyl CADD 100 ML ONE ×2 (08:28→17:29)
[2021-05-04] MEDS ORDERED: Labetalol HCl 100 MG/20 ML VIAL SLOW IVP PRN (09:08)
[2021-05-04] MEDS: Vecuronium 10 MG VIAL IV PRN ×3 (09:11→17:45)
[2021-05-04] MEDS: Fentanyl CADD 100 ML IV SCH ×2 (09:14→17:33)
[2021-05-04] MEDS: Lorazepam 2 MG/ML VIAL SLOW IVP PRN ×4 (10:38→17:34)
[2021-05-04] MEDS: hydrALAZINE 20 MG/ML VIAL SLOW IVP PRN (11:01)
[2021-05-04] MEDS: Pantoprazole 40 MG GRANULES PACKET PER TUBE SCH ×2 (12:28→20:09)
[2021-05-04] MEDS: Midazolam In 0.9 % NaCl/PF 100 ML IVPB PRN (12:28)
[2021-05-04] MEDS: Rocuronium Bromide 50 MG/5 ML VIAL IVP PRN (13:47)
[2021-05-04] MEDS ORDERED: Heparin 10,000 UNITS/ 10 ML VIAL SLOW IVP SCH (14:15)
[2021-05-04 14:48] LABS: INR-International Normal Ratio 1.4; PTT 40.6 sec (22.9-36.1); Prothrombin Time 17.7 sec (12.0-14.7)
[2021-05-04] MEDS: Heparin 25,000 units/D5W 500 ML IV SCH (15:17)
[2021-05-04 22:10] LABS: PTT 140.5 sec (22.9-36.1)
[2021-05-05] MEDS: HumaLOG 300 UNITS/3 ML VIAL SC PRN ×4 (00:35→17:29)
[2021-05-05] MEDS: Fentanyl CADD 100 ML IV SCH ×2 (01:46→09:55)
[2021-05-05 01:48] LABS: Vancomycin, Random 9.5 ug/mL (See Comment)
[2021-05-05] MEDS: Albuterol 200 PUFF (6.7GM INHALER) INH SCH ×6 (02:45→21:56)
[2021-05-05] MEDS: Norepinephrine 8 MG/0.9% NS 250 ML IVPB SCH (04:00)
[2021-05-05] MEDS: VANCOMYCIN 1.25 GM/250 ML BAG 1.25 GM in Premix Bag 1 BAG IVPB SCH ×3 (04:15→20:59)
[2021-05-05 04:55] LABS: ALT (SGPT) 54 U/L (8-55); AST (SGOT) 40 U/L (5-34); Albumin 2.2 g/dL (3.5-5.0); Alkaline Phosphatase 190 U/L (40-110); Anion Gap 11 mmol/L (10-20); BUN (Urea Nitrogen) 34 mg/dL (8.9-20.6); Bilirubin, Total 0.7 mg/dL (0.2-1.2); Calc. Creatinine Clearance 127 mL/min (70-130); Calcium 8.1 mg/dL (7.8-10.44); Carbon Dioxide 26 mmol/L (22-29); Chloride 112 mmol/L (98-107); Globulin 2.5 g/dL (2.4-3.5); Glucose 167 mg/dL (70-105); Magnesium 2.5 mg/dL (1.6-2.6); Phosphorus 4.4 mg/dL (2.3-4.7); Potassium 4.3 mmol/L (3.5-5.1); Protein, Total 4.7 g/dL (6.0-8.3); Sodium 145 mmol/L (136-145)
[2021-05-05 05:20] LABS: Hemoglobin 9.7 g/dL (14.0-18.0); MDiff Complete? YES; Mean Corpuscular HGB CONC 32.3 g/dL (32.0-36.0); Mean Corpuscular Hemoglobin 30.6 pg (27.0-31.0); Mean Corpuscular Volume 94.8 fL (78.0-98.0); Mean Platelet Volume 12.3 fL (7.4-10.4); Platelet Count 130 thou/uL (130-400); RBC Distribution Width 14.4 % (11.5-14.5); Red Blood Cell (RBC) Count 3.16 mill/uL (4.70-6.10); White Blood Cell (WBC) Count 21.6 thou/uL (4.8-10.8)
[2021-05-05 05:21] LABS: Band 10 % (5-11); Lymphocytes 3 % (21-51); Monocytes 8 % (0-10); Neutrophil 79 % (42-75); Platelet Morphology Comment Appears Adequate
[2021-05-05] MEDS: SODIUM CHLORIDE 0.9% IVPB SCH ×2 (06:47→20:51)
[2021-05-05] MEDS: METHYLPREDNISOLONE SOD SUCC IVPB SCH ×2 (06:47→20:51)
[2021-05-05] MEDS: Mometasone 200 MCG/Formoterol 5 MCG 120 PUFF INHALER INH SCH ×2 (06:55→18:50)
[2021-05-05 07:36] LABS: Actual Bicarbonate (HCO3a) 21.2 mEq/L (22-28); Base Excess (BEa) -3.2 mEq/L (-2.0 to +3.0); CO2 Tension 35.5 mmHg (35.0-45.0); Calcium, Ionized (arterial) 1.18 mmol/L (1.12-1.30); Carboxyhemoglobin (COHb) 0.5 gm% (0.0-3.0); Hemoglobin (Hb) 11.8 g/dL (14.0-18.0); Potassium - ABG Lab 4.18 mmol/L (3.70-5.30); pH, Arterial 7.39 (7.35-7.45)
[2021-05-05 07:58] LABS: ALV-art Gradient 609.625 mmHg (0-20); Puncture Site RRA
[2021-05-05] MEDS: Senokot S 8.6-50 MG TAB PO SCH ×2 (08:13→20:53)
[2021-05-05] MEDS: Polyethylene Glycol 3350 17 GM Packet PER TUBE SCH (08:13)
[2021-05-05] MEDS: Cholecalciferol 1,000 UNITS (25 MCG) TAB PO SCH (08:13)
[2021-05-05] MEDS: Ascorbic Acid 500 mg Chewable Tablet PO SCH (08:13)
[2021-05-05] MEDS: Pantoprazole 40 MG GRANULES PACKET PER TUBE SCH ×2 (08:13→20:55)
[2021-05-05] MEDS: cloNIDine 0.2 MG TAB PO SCH ×2 (08:13→20:53)
[2021-05-05] MEDS: Topiramate 25 MG TAB PO SCH (08:13)
[2021-05-05] MEDS: Metoprolol Tartrate 25 MG TAB PO SCH ×2 (08:14→17:34)
[2021-05-05] MEDS: Propofol 1,000 MG/100 ML VIAL IV PRN ×2 (08:14→22:51)
[2021-05-05] MEDS: Cefepime 1 GM in Sodium Chloride 0.9% 100 ML IVPB SCH ×2 (08:14→20:51)
[2021-05-05] MEDS: NPH, Human Insulin Isophane 300 UNIT/3 ML VIAL SC SCH ×2 (08:15→20:54)
[2021-05-05] MEDS: Heparin 25,000 units/D5W 500 ML IV SCH (08:16)
[2021-05-05] MEDS: Lorazepam 2 MG/ML VIAL SLOW IVP PRN ×3 (09:07→22:51)
[2021-05-05] MEDS: Midazolam In 0.9 % NaCl/PF 100 ML IVPB PRN (09:21)
[2021-05-05] MEDS ORDERED: Fentanyl CADD 0 ML ONE (09:47)
[2021-05-05 16:18] VITALS: BMI 32.8
[2021-05-05] MEDS ORDERED: Fentanyl CADD 100 ML ONE (17:37)
[2021-05-05] MEDS: Rocuronium Bromide 50 MG/5 ML VIAL IVP PRN ×2 (20:55→22:51)
[2021-05-05] MEDS: Morphine 4 MG/ML VIAL SLOW IVP PRN ×2 (20:55→22:51)
[2021-05-05] MEDS: Vecuronium 10 MG VIAL IV PRN (21:28)
[2021-05-05] MEDS: Vancomycin 1.5 GRAM/300 ML BAG 1.5 GM in Premix Bag 1 BAG IVPB SCH (21:28)
[2021-05-05] MEDS ORDERED: Furosemide 40 MG/4 ML VIAL SLOW IVP SCH (21:30)
[2021-05-05 21:59] VITALS: BP 155/58
[2021-05-06 00:40] VITALS: TEMP 99.5
== END 2021-05-06 01:14 | disposition expired | DRG 870 ==
LOC: ERS 23:36 → 2SW 04-14 02:00 → IMCU/EMU 04-19 16:40 → CCU 04-24 03:24
PROVIDERS: ADMIT Internal Medicine; ATTEND Internal Medicine
PROC: XW033E5 Introduction of Remdesivir Anti-infective into Peripheral Vein, Percutaneous Approach, New Technology Group 5 (ICD-10-PCS; 2021-04-14)
PROC: 8E0ZXY6 Isolation (ICD-10-PCS; 2021-04-14)
PROC: 5A0955A Assistance with Respiratory Ventilation, Greater than 96 Consecutive Hours, High Flow/Velocity Cannula (ICD-10-PCS; 2021-04-14)
PROC: 3E0333Z Introduction of Anti-inflammatory into Peripheral Vein, Percutaneous Approach (ICD-10-PCS; 2021-04-15)
PROC: XW0DXM6 Introduction of Baricitinib into Mouth and Pharynx, External Approach, New Technology Group 6 (ICD-10-PCS; 2021-04-17)
PROC: 3E0G76Z Introduction of Nutritional Substance into Upper GI, Via Natural or Artificial Opening (ICD-10-PCS; 2021-04-17)
PROC: 5A1955Z Respiratory Ventilation, Greater than 96 Consecutive Hours (ICD-10-PCS; principal; 2021-04-24)
PROC: 5A09357 Assistance with Respiratory Ventilation, Less than 24 Consecutive Hours, Continuous Positive Airway Pressure (ICD-10-PCS; 2021-04-24)
PROC: 0BH17EZ Insertion of Endotracheal Airway into Trachea, Via Natural or Artificial Opening (ICD-10-PCS; 2021-04-24)
PROC: 3E033XZ Introduction of Vasopressor into Peripheral Vein, Percutaneous Approach (ICD-10-PCS; 2021-04-28)
PROC: 02HV33Z Insertion of Infusion Device into Superior Vena Cava, Percutaneous Approach (ICD-10-PCS; 2021-05-04)
PROC: B548ZZA Ultrasonography of Superior Vena Cava, Guidance (ICD-10-PCS; 2021-05-04)
PROC: 0BJ08ZZ Inspection of Tracheobronchial Tree, Via Natural or Artificial Opening Endoscopic (ICD-10-PCS; 2021-05-04)
DX: A41.89 Other specified sepsis (principal); U07.1 COVID-19; J12.82 Pneumonia due to coronavirus disease 2019; J80 Acute respiratory distress syndrome; J15.212 Pneumonia due to Methicillin resistant Staphylococcus aureus; G93.49 Other encephalopathy; F05 Delirium due to known physiological condition; Z66 Do not resuscitate; Z51.5 Encounter for palliative care; R65.20 Severe sepsis without septic shock; E87.6 Hypokalemia; I10 Essential (primary) hypertension; R79.89 Other specified abnormal findings of blood chemistry; R74.8 Abnormal levels of other serum enzymes; E11.65 Type 2 diabetes mellitus with hyperglycemia; F43.21 Adjustment disorder with depressed mood; E66.01 Morbid (severe) obesity due to excess calories; R45.1 Restlessness and agitation; Z78.1 Physical restraint status; Z79.899 Other long term (current) drug therapy; Z79.84 Long term (current) use of oral hypoglycemic drugs; Z98.890 Other specified postprocedural states; Z82.49 Family history of ischemic heart disease and other diseases of the circulatory system; Z87.891 Personal history of nicotine dependence; Z68.36 Body mass index [BMI] 36.0-36.9, adult; I46.9 Cardiac arrest, cause unspecified; D53.9 Nutritional anemia, unspecified; D69.6 Thrombocytopenia, unspecified; E78.00 Pure hypercholesterolemia, unspecified
CPT/HCPCS: 36415; 36416; 36600; 71045; 71275; 80048; 80053; 80076; 80202; 81001; 82553; 82728; 82805; 83735; 84100; 84145; 84478; 84484; 85007; 85025; 85027; 85610; 85730; 86140; 87040; 87070; 87077; 87186; 87205; 93005; 94003; 96374; 99283; C9113; J0360; J0692; J1100; J1644; J1650; J1815; J1940; J2060; J2270; J2704; J2930; J3010; J3370; J3490; J7030; J7050; Q9967